=== PATIENT | female | born 1940 | race Caucasian/White ===

== ENCOUNTER 2022-09-04 17:36 | Inpatient (IN) | payer MEDICARE, OTHER, SELFPAY ==
[2022-09-04] VITALS (11 sets, daily range): BP systolic 130–152; BP diastolic 69–87; PULSE 96–120; RESP 18–20; TEMP 36.6; O2SAT 95–100; BMI 26.6
--- NOTE | ~2022-09-04 | CT_ITS ---
EXAMINATION: CT BRAIN W/O DATE: 09/04/2022 19:11 INDICATION: Altered mental status. TECHNIQUE: Computed tomography (CT) of the head was performed without intravenous contrast. The dose- length product was 681.00 mGy-cm. COMPARISON: No prior studies for comparison. FINDINGS: Normal brain parenchymal volume for age. Normal frye-white differentiation. No acute intrac ranial hemorrhage, infarction, mass or mass effect. There are scattered mild periventricular and subc ortical white matter changes, most likely related to small vessel ischemic disease (microangiopathy). Paranasal sinuses and mastoids are pneumatized. No depressed skull fractures. No ventriculomegaly or midline shift. Midline sagittal images demonstrate a normal corpus callosum, c raniovertebral junction and sella turcica. Basilar cisterns are patent. Paranasal sinuses and mastoids are pneumatized. No depressed skull fractures. IMPRESSION: 1. No acute intracranial abnormality. Reviewed, dictated and finalized at location A.
--- NOTE | ~2022-09-04 | XR_ITS ---
EXAMINATION: XR chest 1V portable 09/04/2022 18:35 INDICATION: Elevated glucose PROCEDURE: AP portable chest COMPARISON: 08/02/2019 FINDINGS: The lungs are clear. The cardiomediastinal silhouette is within normal limits. There are no pleural effusions. There is no pneumothorax suspected. IMPRESSION: 1: NO ACUTE CARDIOPULMONARY DISEASE. Reviewed, dictated and finalized at location A.
[2022-09-04 18:01] LABS: Glucose Point of Care > 450 mg/dl (65-105)
[2022-09-04] MEDS: SODIUM CHLORIDE 0.9% IV 1,000 ML 999 ML IV CONT ×2 (18:29→19:25)
[2022-09-04 18:30] LABS: Base Excess ABG 1.6 mmol/L (0-2); Carboxyhemoglobin 0.6 % (0-1.5); HCO3 ABG 24.4 mmol/L (23-29); Methemoglobin ABG 0.3 % (0-1.5); Oxygen Content ABG 20.7 %vol (16.0-22.0); Oxygen Saturation ABG 95.3 % (95-97); Oxyhemoglobin 94.4 % (94-100); PCO2 ABG 33.4 mmHg (35-45); PO2 ABG 70.2 mmHg (75-85); Reduced Hemoglobin 4.7 % (0-1.5); Total Hemoglobin 15.6 g/dL (12.0-18.0); pH ABG 7.48 (7.35-7.45)
[2022-09-04 18:34] LABS: Hematocrit 43.6 % (35.0-42.0); Hemoglobin 14.9 g/dL (11.7-13.8); Mean Corpuscular HGB Conc 34.2 g/dL (32.0-36.0); Mean Corpuscular Hemoglobin 29.9 pg (27.0-31.0); Mean Corpuscular Volume 87.6 fL (78.0-102.0); Mean Platelet Volume 10.6 fl (9.2-11.8); Platelet Count Result 333 K/mm3 (150-420); Red Blood Count 4.98 M/mm3 (4.20-5.40); Red Cell Distribution Width 11.9 % (11.6-14.4)
[2022-09-04 18:34] LABS: Device ROOM AIR; Modified Allen's Test Pass; Site Drawn RIGHT RADIAL
[2022-09-04 18:47] LABS: Band Neutrophils Percent 0 % (0-6); Eosinophils Absolute Manual 0.21 K/mm3 (0.02-0.5); Eosinophils Percent Manual 1 % (1-6); Lymphocytes Absolute Manual 2.75 K/mm3 (1.1-4.5); Lymphocytes Percent Manual 13 % (18-44); Monocytes Absolute Manual 1.27 K/mm3 (0.1-0.90); Monocytes Percent Manual 6 % (3-9); Neutrophils Absolute Manual 16.53 K/mm3 (1.7-7.2); Neutrophils Percent Manual 78 % (46-73)
[2022-09-04 18:48] LABS: Basophils Absolute Manual 0.42 K/mm3 (0-0.1); Basophils Percent Manual 2 % (0-1); Platelet Estimate Adequate (Adequate)
[2022-09-04 18:55] LABS: Lactic Acid Reflex 2.5 mmol/L (0.4-2.0)
[2022-09-04 18:58] LABS: Alanine Aminotransferase 15 U/L (14-59); Albumin Level 3.6 g/dL (3.4-5.0); Alkaline Phosphatase 137 U/L (46-116); Anion Gap 7 mmol/L (8-16); Aspartate Amino Transferase 12 U/L (15-37); Bilirubin,Total 0.5 mg/dL (0.00-1.00); Blood Urea Nitrogen 48 mg/dL (7-18); CRP 0.7 mg/dL (0.0-0.9); Calcium 11.3 mg/dL (8.5-10.1); Carbon Dioxide 29 mmol/L (21-32); Chloride 94 mmol/L (98-108); Estimated CRCL calculation 22 ml/min; Estimated Glomerular Filt Rate 34; Magnesium 2.1 mg/dL (1.8-2.4); Potassium 3.3 mmol/L (3.5-5.1); Sodium 130 mmol/L (136-145); Total Protein 7.2 g/dL (6.4-8.2)
[2022-09-04 19:00] LABS: Glucose 526 mg/dL (70-99); Osmolality Calculated 306 mOsm/kg (285-295)
[2022-09-04 19:01] LABS: White Blood Count 21.2 K/mm3 (4.8-10.8)
--- NOTE | 2022-09-04 19:28 | ECG_ITS ---
Measurements Intervals [place] Rate: 99 P: 65 HI: 158 QRS: -47 QRSD: 136 T: 127 QT: 386 QTc: 497 Interpretive Statements SINUS RHYTHM WITH OCCASIONAL SUPRAVENTRICULAR PREMATURE COMPLEXES LEFT AXIS DEVIATION [QRS AXIS < -30] LEFT BUNDLE BRANCH BLOCK [120+ ms QRS DURATION, 80+ ms Q/S IN V1/V2, 85+ ms R IN I/aVL/V5/V6] NO PREVIOUS ECG AVAILABLE FOR COMPARISON Electronically Signed On 09-05-2022 14:00:32 CDT by David Briones M.D.
[2022-09-04 19:31] LABS: Glucose Point of Care > 450 mg/dl (65-105)
[2022-09-04 20:01] LABS: Troponin I 25.8 ng/L (0.00-60.4)
[2022-09-04 20:10] LABS: Appearance Urine Clear (Clear); Bilirubin Urine Negative (Negative); Blood Urine Negative (Negative); Glucose Urine UA 3+ (Negative); Ketones Urine Negative (Negative); Leukocyte Esterase Ur Trace (Negative); Nitrate Urine Negative (Negative); Protein Urine Negative (Negative); Specific Grav Ur 1.015 (1.010-1.020); Urobilinogen Urine 0.2 mg/dL (0.2-1.0)
[2022-09-04 20:17] LABS: Add Urine Microscopic? YES; Bacteria Urine 1+ /hpf; Budding Yeast Urine Present /hpf; Color Urine Light Yellow (Yellow); RBC Urine 0-2 /hpf (0-2); Squamous Epithelial Cell Urine None seen /hpf (Few)
[2022-09-04 20:21] LABS: Glucose Point of Care > 450 mg/dl (65-105)
--- NOTE | 2022-09-04 20:21 | PC.NURSE ---
BS at 451, orders obtained from ERP. Pt is A&O x3 and visiting c family at bedside, pt was able to use BSC to urinate for UA but noted incontinent of urine in depend. VSS at this time.
[2022-09-04] MEDS: INSULIN HUMAN REGULAR (*BKC) 100 UNITS/ML 7 UNITS IV PUSH (20:28)
[2022-09-04] MEDS: KCL 20 MEQ/SW 100 ML 100 ML 50 MEQ IVPB (20:29)
[2022-09-04] MEDS: SODIUM CHLORIDE 0.9% IV 500 ML 999 ML IV CONT (20:30)
--- NOTE | 2022-09-04 20:37 | ED.WEAKNESS ---
HPI - Weakness General Chief complaint: Weakness Stated complaint: high blood pressure, low oxygen Time Seen by Provider: 09/04/22 17:42 Source: patient and family Mode of arrival: ambulatory History of Present Illness HPI Narrative: This is an 82-year-old female with history of diabetes that lives at home by herself and apparently family typically checks up on her but family was not aware that the patient has not been using right chair to keep her follow-up appointments with her primary care physician and [facility]. Patient has not been taking her medication or her insulin, and presents with elevated blood sugar reading of greater than 500. Is not complaining of any chest pain or shortness of breath no fever chills no nausea vomiting no abdominal pain no flank pain no dysuria. Patient has a history of hypertension and hypothyroidism. According to family they were not aware that she was not keeping her follow-up appointments. Otherwise the patient appears comfortable no acute distress O2 sats initially 96% on room air currently 99% on room air with a blood pressure 131/72 initially. MD Complaint: generalized weakness Onset (ago): week(s) Duration: improved Migration: none Related Data Home Medications Medication Instructions Recorded Confirmed amlodipine 10 mg tablet 10 mg PO DAILY 09/04/22 09/04/22 hydrochlorothiazide 25 mg tablet 25 mg PO DAILY 09/04/22 09/04/22 insulin lispro protamine-lispro 10 unit subcut DAILY 09/04/22 09/04/22 100 unit/mL (75-25) subcutaneous pen (Humalog Mix 75-25 KwikPen) insulin lispro protamine-lispro 55 unit subcut HS 09/04/22 09/04/22 100 unit/mL (75-25) subcutaneous pen (Humalog Mix 75-25 KwikPen) insulin lispro protamine-lispro 75 unit subcut QAM 09/04/22 09/04/22 100 unit/mL (75-25) subcutaneous pen (Humalog Mix 75-25 KwikPen) levothyroxine 50 mcg tablet 50 mcg PO DAILY 09/04/22 09/04/22 (Synthroid) lisinopril 40 mg tablet 40 mg PO DAILY 09/04/22 09/04/22 Allergies Allergy/AdvReac Type Severity Reaction Status Date / Time No Known Allergies Allergy Verified 09/04/22 18:17 Review of Systems Review of Systems: All systems reviewed & are unremarkable except as noted in HPI and below PMFSH Past Medical History Medical History Diabetes mellitus HTN (hypertension) Exam Const: General: healthy appearing, no acute distress and alert Limitations: no limitations HENMT: Head: normal to inspection Face/Nose/Sinus: Normal external nose present Face and sinus: normal facial exam Eyes: Conjunctivae: conjunctivae normal Pupils: Equal, round and reactive pupils present EOM: EOMs intact bilaterally Neck: Neck: normal visual inspection, no lymphadenopathy and no meningeal signs Chest: Chest palpation & inspection: normal inspection of the chest Resp: Effort & Inspection: normal respiratory effort Auscultation: clear to auscultation bilaterally Cardio: Rate: regular rate Rhythm: regular rhythm GI: GI Palp: Yes Soft to palpation Auscultation: normal bowel sounds Urinary Catheter: Urinary Catheter: patent and draining Back/Spine/Pelvis: Back: no CVA tenderness Skin: General skin exam: normal color Rashes: no rashes Wounds: no wounds Neuro: General: patient oriented x3 Cranial nerves: Yes Nystagmus not present Extrem: General: normal to inspection, no clubbing, cyanosis or edema and no pedal edema Psych: Mental Status: mental status grossly normal Affect: normal affect Course Course Emergency Course: reassessment of patient continues to appear comfortable no acute distress no complaints, no pain, the patient received 2L of IV fluids and her blood glucose levels have decreased to 451 down from over 500 patient received a dose of regular insulin and with insulin given and a potassium of 3.3 will start okay public relations writer labs reviewed with patient patient has a anion gap of 7 creatinine of 1.48 CBC
--- NOTE | 2022-09-04 21:16 | PC.NURSE ---
Hospitalist reviewed pt chart and ERP placed order for pt to be admitted. Discussed POC c pt and daughter, call placed to floor for Rm assignment, pt will go to Rm 205. VSS at this time, K+ rider infusing as per order.
--- NOTE | 2022-09-04 21:55 | ADMGEN ---
This patient, Mary Jo Ugalde, was admitted to 2nd Floor Room 205-1. Patient/family oriented to hospital policies and general routines including ID bracelet, bed and alarms, visiting hours, pain management, procedures, bathroom and other care routines, personal items, smoking policy, room service/diet, and visiting hours. Information on how to activate the Rapid Response Team has been discussed. Patient/Family are encouraged to report perceived risks to care and to ask questions if they do not understand what they are told or what they should do.
[2022-09-04 22:06] LABS: Glucose Point of Care 254 mg/dl (65-105)
[2022-09-04] MEDS: SODIUM CHLORIDE 0.9% IV 1,000 ML 100 ML IV CONT (23:20)
[2022-09-05] VITALS: BP 159/81; PULSE 103; RESP 16; TEMP 36.8; O2SAT 99
[2022-09-05 05:15] LABS: Hematocrit 38.4 % (35.0-42.0); Hemoglobin 12.8 g/dL (11.7-13.8); Mean Corpuscular HGB Conc 33.3 g/dL (32.0-36.0); Mean Corpuscular Hemoglobin 29.5 pg (27.0-31.0); Mean Corpuscular Volume 88.5 fL (78.0-102.0); Mean Platelet Volume 10.2 fl (9.2-11.8); Platelet Count Result 254 K/mm3 (150-420); Red Blood Count 4.34 M/mm3 (4.20-5.40); Red Cell Distribution Width 11.9 % (11.6-14.4); White Blood Count 13.1 K/mm3 (4.8-10.8)
[2022-09-05 05:36] LABS: Lactic Acid Reflex 0.9 mmol/L (0.4-2.0)
[2022-09-05 05:47] LABS: Alanine Aminotransferase 10 U/L (14-59); Albumin Level 2.6 g/dL (3.4-5.0); Alkaline Phosphatase 99 U/L (46-116); Anion Gap 10 mmol/L (8-16); Aspartate Amino Transferase 11 U/L (15-37); Bilirubin,Total 0.5 mg/dL (0.00-1.00); Blood Urea Nitrogen 28 mg/dL (7-18); Carbon Dioxide 24 mmol/L (21-32); Chloride 106 mmol/L (98-108); Estimated CRCL calculation 37 ml/min; Estimated Glomerular Filt Rate > 60; Glucose 306 mg/dL (70-99); Osmolality Calculated 307 mOsm/kg (285-295); Potassium 3.1 mmol/L (3.5-5.1); Sodium 140 mmol/L (136-145); Total Protein 5.5 g/dL (6.4-8.2)
[2022-09-05 05:48] LABS: Thyroid Stimulating Hormone Reflex 1.82 u/IU/mL (0.36-3.74)
[2022-09-05] MEDS: LEVOTHYROXINE SODIUM 50 MCG TABLET PO (06:07)
[2022-09-05 08:00] VITALS: BP 138/82; PULSE 92; RESP 18; TEMP 36.5; O2SAT 97
[2022-09-05 08:05] LABS: Glucose Point of Care 298 mg/dl (65-105)
[2022-09-05] MEDS: amLODIPine BESYLATE 5 MG TABLET 10 MG PO (09:33)
[2022-09-05] MEDS: lisinopriL 20 MG TABLET 40 MG PO (09:34)
[2022-09-05] MEDS: hydroCHLOROthiazide 25 MG TABLET PO (09:34)
[2022-09-05] MEDS: ENOXAPARIN 30 MG/0.3 ML SYRINGE SUB-Q (09:40)
--- NOTE | 2022-09-05 10:28 | PM.IMHP ---
H&P: HPI History of Present Illness Date/Time: 09/05/22 10:28 Chief Complaint: Weakness and confusion Narrative: This is a 82-year-old female who presented to our emergency department with complaints of weakness and confusion. Patient has a past medical history of diabetes and hypertension. According to the patient she has been having periods of confusion for approximately 1 month. Patient also notes that she has not been taking her blood sugars or insulin for approximately 1 month she also does not eat a diabetic diet. Patient notes that she is better with taking her diabetes medication and has not been taking it for approximately 1 month. When asked why she has not been taking it she does note she is tired of taking her medication. Patient is noncompliant with her diabetic management. Patient also notes that she has been having visual difficulties and was not sure if her insulin was or not. Vital signs 138/82, 92, 18, 97.7, 97% on room air, blood sugar on admission greater than 450, lactic acid 2.5, sodium 130, potassium 3.3, BUN 48, creatinine 1.48, CRP 0.7, UA positive for glucose leukocytes and bacteria with budding yeast ABG pH 7.48, CO2 33.4, O2 70.2, bicarb 24.4. CT of the head and chest unremarkable EKG sinus rhythm. Patient does stay at home along with his will need to swing. Plans for swing patient if she qualifies the patient denies SOB, CP, palpitation, extremity numbness, lightheadedness, dizziness, constipation, diarrhea, chills, or fever. Review of Systems Review of Systems: A 14 organ system Review of Systems was performed and pertinent positives included in the HPI, otherwise remaining ROS is negative. FOR[facility]LY [facility] Past Medical History Medical History Diabetes mellitus HTN (hypertension) Social History Social History Smoking status: Never smoker Second hand tobacco smoke exposure: No Alcohol intake: never Substance use: never Substance use type: does not use Spiritual care concerns: No Meds Home Medications and Allergies Home Medications Medication Instructions Recorded Confirmed Type amlodipine 10 mg tablet 10 mg PO DAILY 09/04/22 09/04/22 History hydrochlorothiazide 25 mg tablet 25 mg PO DAILY 09/04/22 09/04/22 History insulin lispro protamine-lispro 10 unit subcut DAILY 09/04/22 09/04/22 History 100 unit/mL (75-25) subcutaneous pen (Humalog Mix 75-25 KwikPen) insulin lispro protamine-lispro 55 unit subcut HS 09/04/22 09/04/22 History 100 unit/mL (75-25) subcutaneous pen (Humalog Mix 75-25 KwikPen) insulin lispro protamine-lispro 75 unit subcut QAM 09/04/22 09/04/22 History 100 unit/mL (75-25) subcutaneous pen (Humalog Mix 75-25 KwikPen) levothyroxine 50 mcg tablet 50 mcg PO DAILY 09/04/22 09/04/22 History (Synthroid) lisinopril 40 mg tablet 40 mg PO DAILY 09/04/22 09/04/22 History Allergies Allergy/AdvReac Type Severity Reaction Status Date / Time No Known Allergies Allergy Verified 09/04/22 18:17 Vital Signs Vital Signs - 24 hr 09/04/22 18:36 09/04/22 20:09 09/04/22 21:18 Temperature 97.8 F Pulse Rate 120 H 96 100 Respiratory Rate 20 18 18 Blood Pressure 131/72 152/87 H 142/85 H Pulse Oximetry 96 99 97 Oxygen Delivery Room Air Room Air Room Air 09/04/22 20:10 09/04/22 20:15 09/04/22 20:30 Temperature Pulse Rate Respiratory Rate Blood Pressure Pulse Oximetry 98 96 100 Oxygen Delivery 09/04/22 20:32 09/04/22 20:45 09/04/22 21:00 Temperature Pulse Rate Respiratory Rate Blood Pressure 130/69 Pulse Oximetry 100 95 Oxygen Delivery 09/04/22 21:01 09/04/22 21:15 09/05/22 00:00 Temperature 98.2 F Pulse Rate 103 H Respiratory Rate 16 Blood Pressure 142/85 H 159/81 H Pulse Oximetry 98 98 99 Oxygen Delivery Room Air 09/05/22 08:00 Temperature 97.7 F Pulse Rate 92 Re
[2022-09-05] MEDS: POTASSIUM CHLORIDE 20 MEQ TABLET 40 MEQ PO (11:03)
[2022-09-05 11:58] LABS: Glucose Point of Care 392 mg/dl (65-105)
[2022-09-05 15:02] VITALS: BP 119/62; PULSE 105; RESP 18; TEMP 36.1; O2SAT 99
--- NOTE | 2022-09-05 15:42 | PC.NURSE ---
pt incont. during nap, up to chair, complete bed change done, fresh gown applied, visitors in room, call light in reach
[2022-09-05 16:33] LABS: Glucose Point of Care 220 mg/dl (65-105)
[2022-09-05 20:00] VITALS: BP 117/72; PULSE 96; RESP 20; TEMP 36.3; O2SAT 97
[2022-09-05] MEDS: CEFDINIR 300 MG CAPSULE PO (21:29)
[2022-09-05 21:32] LABS: Glucose Point of Care 284 mg/dl (65-105)
[2022-09-05 23:56] VITALS: BP 143/73; PULSE 96; RESP 18; TEMP 36.1; O2SAT 97
[2022-09-06 03:48] VITALS: BP 123/73; PULSE 96; RESP 20; TEMP 36.1; O2SAT 96
[2022-09-06 05:30] LABS: Hematocrit 37.7 % (35.0-42.0); Hemoglobin 12.4 g/dL (11.7-13.8); Mean Corpuscular HGB Conc 32.9 g/dL (32.0-36.0); Mean Corpuscular Hemoglobin 29.9 pg (27.0-31.0); Mean Corpuscular Volume 90.8 fL (78.0-102.0); Mean Platelet Volume 10.3 fl (9.2-11.8); Platelet Count Result 235 K/mm3 (150-420); Red Blood Count 4.15 M/mm3 (4.20-5.40); Red Cell Distribution Width 12.1 % (11.6-14.4); White Blood Count 9.1 K/mm3 (4.8-10.8)
--- NOTE | 2022-09-06 05:34 | WPDPN ---
Progress Note: A&P Assessment and Plan (1) Hyperglycemia: Code(s): R73.9 - Hyperglycemia, unspecified Status: Acute Assessment and Plan: Noncompliant Blood sugar on admission>450>254>298 Continue Accu-Cheks with sliding scale patient will continue home dosing of insulin with half the amount of insulin. Patient admits to being noncompliant with her diet we will adjust her insulin as indicated. A1c pending Follow-up with contract preparer She remains elevated resume home insulin dosage we will closely monitor (2) Acute hypokalemia: Code(s): E87.6 - Hypokalemia Status: Acute Assessment and Plan: Potassium 3.3> 3.1 Supplement (3) UTI (urinary tract infection): Qualifiers: Hematuria presence: without hematuria Urinary tract infection type: acute cystitis Qualified Code(s): N30.00 - Acute cystitis without hematuria Code(s): N39.0 - Urinary tract infection, site not specified Status: Acute Assessment and Plan: UA positive for leukocytes UA culture pending Patient started on azithromycin and Rocephin changed to cefdinir p.o. (4) HTN (hypertension): Code(s): I10 - Essential (primary) hypertension Status: Acute Assessment and Plan: Stable Continue amlodipine with hydrochlorothiazide and lisinopril Vital signs as ordered Will adjust medications (5) Diabetes mellitus: Code(s): E11.9 - Type 2 diabetes mellitus without complications Status: Acute Assessment and Plan: On admission blood sugar greater than 500 currently in the 200s A1c pending Continue diabetic bed diet Refer to hyperglycemia (6) Acute kidney injury: Code(s): N17.9 - Acute kidney failure, unspecified Status: Acute Assessment and Plan: Improved Creatinine 1.48>0.86 Will avoid nephrotoxic agents Will renal dose medication Subjective Date/time seen: 09/06/22 05:34 Interval history: Patient has no complaints she slept well overnight able to tolerate a meal and physical therapy is going well. The patient denies SOB, CP, palpitation, extremity numbness, lightheadedness, dizziness, constipation, diarrhea, chills, or fever. Exam Narrative: GENERAL: This is a well-nourished, well-developed patient, in no apparent distress. HEAD: normocephalic, atraumatic. EYES: PERRL. Sclera clear/white. Vision is grossly intact. EARS: External ears normal, auditory canals clear and without drainage, TMs normal without perforation. Hearing grossly intact. NOSE: External nose normal with no obvious nasal discharge, nares without redness, no rhinorrhea. THROAT: Mucous membranes moist, posterior pharynx clear. NECK: Neck supple, non-tender without lymphadenopathy, masses or thyromegaly. CARDIOVASCULAR: Regular rate and rhythm without murmurs, gallops, or rubs. RESPIRATORY: Clear to auscultation. Breath sounds equal bilaterally. No wheezes, rales, or rhonchi. GASTROINTESTINAL: Abdomen soft, non-tender, nondistended. Bowel sounds are active. No hepato-splenomegaly, or palpable masses. No guarding. SKIN: warm, intact with no suspicious lesions or rash, good texture and turgor. NEURO: awake, alert, and oriented to person, place and time. There were no obvious focal neurologic abnormalities. EXTREMITIES: Normal range of motion. No edema. No calf tenderness. Objective Data Vital Signs Vital Signs: Vital Signs - 24 hr 09/05/22 08:00 09/05/22 15:02 09/05/22 20:00 Temperature 97.7 F 97.0 F L 97.4 F L Pulse Rate 92 105 H 96 Respiratory Rate 18 18 20 Blood Pressure 138/82 119/62 117/72 Pulse Oximetry 97 99 97 Oxygen Delivery Room Air Room Air Room Air 09/05/22 23:56 09/06/22 03:48 Temperature 97 F L 96.9 F L Pulse Rate 96 96 Respiratory Rate 18 20 Blood Pressure 143/73 H 123/73 Pulse Oximetry 97 96 Oxygen Delivery Room Air Room Air Intake/Output Intake/Output: Intake & Output 09/03/22 09/04/22 09/05/22 09/06/22 23:5
[2022-09-06 05:52] LABS: Alanine Aminotransferase 12 U/L (14-59); Albumin Level 2.6 g/dL (3.4-5.0); Alkaline Phosphatase 88 U/L (46-116); Anion Gap 7 mmol/L (8-16); Aspartate Amino Transferase < 10 U/L (15-37); Bilirubin,Total 0.6 mg/dL (0.00-1.00); Blood Urea Nitrogen 17 mg/dL (7-18); Calcium 9.4 mg/dL (8.5-10.1); Carbon Dioxide 28 mmol/L (21-32); Chloride 109 mmol/L (98-108); Estimated CRCL calculation 44 ml/min; Estimated Glomerular Filt Rate > 60; Glucose 119 mg/dL (70-99); Osmolality Calculated 300 mOsm/kg (285-295); Potassium 3.8 mmol/L (3.5-5.1); Sodium 144 mmol/L (136-145); Total Protein 5.4 g/dL (6.4-8.2)
[2022-09-06] MEDS: LEVOTHYROXINE SODIUM 50 MCG TABLET PO (05:57)
[2022-09-06 06:02] LABS: Hemoglobin A1C 13.3 % (<5.7)
[2022-09-06 08:00] VITALS: BP 119/76; PULSE 106; RESP 18; TEMP 36.5; O2SAT 98
[2022-09-06 08:11] LABS: Glucose Point of Care 207 mg/dl (65-105)
[2022-09-06] MEDS: ENOXAPARIN 30 MG/0.3 ML SYRINGE SUB-Q (09:49)
[2022-09-06] MEDS: POTASSIUM CHLORIDE 20 MEQ TABLET 40 MEQ PO (09:50)
[2022-09-06] MEDS: lisinopriL 20 MG TABLET 40 MG PO (09:50)
[2022-09-06] MEDS: hydroCHLOROthiazide 25 MG TABLET PO (09:50)
[2022-09-06] MEDS: CEFDINIR 300 MG CAPSULE PO ×2 (09:50→21:24)
[2022-09-06] MEDS: amLODIPine BESYLATE 5 MG TABLET 10 MG PO (09:50)
[2022-09-06 11:43] LABS: Glucose Point of Care 336 mg/dl (65-105)
--- NOTE | 2022-09-06 14:00 | PC.NURSE ---
N.O. received to discontinue telemetry.
[2022-09-06 16:00] VITALS: BP 124/68; PULSE 97; RESP 17; TEMP 37.1; O2SAT 98
[2022-09-06 16:58] LABS: Glucose Point of Care 169 mg/dl (65-105)
--- NOTE | 2022-09-06 18:19 | PC.NURSE ---
Charting by Alexandra Best, student nurse has been reviewed and agreed with by this nurse.
[2022-09-06 21:32] LABS: Glucose Point of Care 244 mg/dl (65-105)
[2022-09-06 23:59] VITALS: BP 118/77; PULSE 94; RESP 18; TEMP 36.6; O2SAT 100
[2022-09-07 05:28] LABS: Hematocrit 39.6 % (35.0-42.0); Hemoglobin 13.2 g/dL (11.7-13.8); Mean Corpuscular HGB Conc 33.3 g/dL (32.0-36.0); Mean Corpuscular Hemoglobin 30.2 pg (27.0-31.0); Mean Corpuscular Volume 90.6 fL (78.0-102.0); Mean Platelet Volume 10.3 fl (9.2-11.8); Platelet Count Result 250 K/mm3 (150-420); Red Blood Count 4.37 M/mm3 (4.20-5.40); Red Cell Distribution Width 11.9 % (11.6-14.4); White Blood Count 9.1 K/mm3 (4.8-10.8)
[2022-09-07 05:44] LABS: Alanine Aminotransferase 12 U/L (14-59); Albumin Level 2.7 g/dL (3.4-5.0); Alkaline Phosphatase 90 U/L (46-116); Anion Gap 5 mmol/L (8-16); Aspartate Amino Transferase 11 U/L (15-37); Bilirubin,Total 0.5 mg/dL (0.00-1.00); Blood Urea Nitrogen 14 mg/dL (7-18); Calcium 9.9 mg/dL (8.5-10.1); Carbon Dioxide 28 mmol/L (21-32); Chloride 109 mmol/L (98-108); Estimated CRCL calculation 45 ml/min; Estimated Glomerular Filt Rate > 60; Glucose 86 mg/dL (70-99); Osmolality Calculated 293 mOsm/kg (285-295); Potassium 3.6 mmol/L (3.5-5.1); Sodium 142 mmol/L (136-145); Total Protein 5.9 g/dL (6.4-8.2)
[2022-09-07] MEDS: LEVOTHYROXINE SODIUM 50 MCG TABLET PO (05:45)
[2022-09-07 08:00] VITALS: BP 127/74; PULSE 106; RESP 17; TEMP 36.4; O2SAT 100
--- NOTE | 2022-09-07 08:48 | PM.DS ---
DS: Admitting Diagnosis Discharge Date 09/07/2022 Admitting Diagnosis Hyperglycemia and UTI DS: Discharge Diagnosis Discharge Diagnosis (1) Hyperglycemia: Code(s): R73.9 - Hyperglycemia, unspecified Status: Acute Assessment and Plan: Noncompliant Blood sugar on admission>450>254>298>119>86 Continue Accu-Cheks with sliding scale patient will continue home dosing of insulin with half the amount of insulin. Patient admits to being noncompliant with her diet we will adjust her insulin as indicated. A1c pending Follow-up with director of curriculum and instruction She remains elevated resume home insulin dosage we will closely monitor (2) Acute hypokalemia: Code(s): E87.6 - Hypokalemia Status: Acute Assessment and Plan: Potassium 3.3> 3.1>3.6 Supplement (3) UTI (urinary tract infection): Qualifiers: Hematuria presence: without hematuria Urinary tract infection type: acute cystitis Qualified Code(s): N30.00 - Acute cystitis without hematuria Code(s): N39.0 - Urinary tract infection, site not specified Status: Acute Assessment and Plan: UA positive for leukocytes UA culture no growth continue cefdinir p.o. (4) HTN (hypertension): Code(s): I10 - Essential (primary) hypertension Status: Acute Assessment and Plan: Stable Continue amlodipine with hydrochlorothiazide and lisinopril Vital signs as ordered Will adjust medications (5) Diabetes mellitus: Code(s): E11.9 - Type 2 diabetes mellitus without complications Status: Acute Assessment and Plan: On admission blood sugar greater than 500 currently in the 200s A1c 13.3 Continue diabetic bed diet Refer to hyperglycemia (6) Acute kidney injury: Code(s): N17.9 - Acute kidney failure, unspecified Status: Acute Assessment and Plan: Improved Creatinine 1.48>0.86 Will avoid nephrotoxic agents Will renal dose medication DS: Summary Hospital Course Reason for hospitalization: Hyperglycemia, UTI and confusion Hospital Course: This is a 82-year-old female who presented to our emergency department with complaints of weakness and confusion.? Patient has a past medical history of diabetes and hypertension.? According to the patient she has been having periods of confusion for approximately 1 month.? Patient also notes that she has not been taking her blood sugars or insulin for approximately 1 month she also does not eat a diabetic diet.? Patient notes that she is better with taking her diabetes medication and has not been taking it for approximately 1 month.? When asked why she has not been taking it she does note she is tired of taking her medication.? Patient is noncompliant with her diabetic management.? Patient also notes that she has been having visual difficulties and was not sure if her insulin was . Patie. Blood sugar is currently controlled. Family members will assist with medication administration to ensure compliance. Patient admitted in swing bed for rehabilitation due to decreased balance decreased mobility in severe limited function endurant and/or mobility. Time Spent with Patient Time attestation: Total time spent providing and/or coordinating discharge services: Exam Narrative: GENERAL: This is a well-nourished, well-developed patient, in no apparent distress. HEAD: normocephalic, atraumatic. EYES: PERRL. Sclera clear/white. Vision is grossly intact. EARS: External ears normal, auditory canals clear and without drainage, TMs normal without perforation. Hearing grossly intact. NOSE: External nose normal with no obvious nasal discharge, nares without redness, no rhinorrhea. THROAT: Mucous membranes moist, posterior pharynx clear. NECK: Neck supple, non-tender without lymphadenopathy, masses or thyromegaly. CARDIOVASCULAR: Regular rate and rhythm without murmurs, gallops, or rubs. RESPIRATORY: Clear to auscultation. Breath sounds equal bila
--- NOTE | 2022-09-07 09:21 | PC.NURSE ---
Pt transitioning to swing bed. Full am assessment to be documented in new chart.
[2022-09-07] MEDS: CEFDINIR 300 MG CAPSULE PO (09:34)
[2022-09-07] MEDS: ENOXAPARIN 30 MG/0.3 ML SYRINGE SUB-Q (09:34)
[2022-09-07] MEDS: POTASSIUM CHLORIDE 20 MEQ TABLET 40 MEQ PO (09:35)
[2022-09-07] MEDS: lisinopriL 20 MG TABLET 40 MG PO (09:35)
[2022-09-07] MEDS: amLODIPine BESYLATE 5 MG TABLET 10 MG PO (09:35)
[2022-09-07] MEDS: hydroCHLOROthiazide 25 MG TABLET PO (09:35)
== END 2022-09-07 08:42 | disposition swing bed (61) | DRG 638 ==
LOC: CHSED 21:04 → CHS2ND 21:18
PROVIDERS: Nurse Practitioner; Admitting Provider Internal Medicine; Emergency Provider Emergency Medicine; Visit Provider Internal Medicine
DX: N39.0 Urinary tract infection, site not specified (principal); E87.6 Hypokalemia; E11.65 Type 2 diabetes mellitus with hyperglycemia; I10 Essential (primary) hypertension; E03.9 Hypothyroidism, unspecified; Z79.4 Long term (current) use of insulin; N17.9 Acute kidney failure, unspecified; Z91.14 Patient's other noncompliance with medication regimen; Z91.119 Patient's noncompliance with dietary regimen due to unspecified reason
CPT/HCPCS: 36415; 36600; 70450; 71045; 80053; 81001; 82375; 82805; 82948; 83036; 83050; 83605; 83735; 84100; 84443; 84484; 85025; 85027; 86140; 87040; 87086; 87088; 93005; 96361; 96365; 96375; 97110; 97162; 97165; 97530; 99285; A9270; J0456; J0696; J1650; J1815; J3480; J7030; J7040

== ENCOUNTER 2022-09-07 09:51 | Inpatient (IN) | payer MEDICARE, OTHER, SELFPAY ==
[2022-09-07 10:16] VITALS: BMI 26.6
[2022-09-07 10:20] VITALS: PULSE 106; RESP 17; O2SAT 100
--- NOTE | 2022-09-07 10:20 | ADMGEN ---
This patient, Mary Jo Ugalde, transferred to Swing Bed admission and remains in Room 205-1. Patient/family oriented to hospital policies and general routines including ID bracelet, bed and alarms, visiting hours, pain management, procedures, bathroom and other care routines, personal items, smoking policy, room service/diet, and visiting hours. Information on how to activate the Rapid Response Team has been discussed. Patient/Family are encouraged to report perceived risks to care and to ask questions if they do not understand what they are told or what they should do.
--- NOTE | 2022-09-07 10:25 | PM.IMHP ---
H&P: HPI History of Present Illness Date/Time: 09/07/22 10:25 Chief Complaint: weakness, rehab Narrative: This is a 82-year-old female who presented to our emergency department with complaints of weakness and confusion.? Patient has a past medical history of diabetes and hypertension.? According to the patient she has been having periods of confusion for approximately 1 month.? Patient also notes that she has not been taking her blood sugars or insulin for approximately 1 month she also does not eat a diabetic diet.? Patient notes that she is better with taking her diabetes medication and has not been taking it for approximately 1 month.? When asked why she has not been taking it she does note she is tired of taking her medication.? Patient is noncompliant with her diabetic management.? Patient also notes that she has been having visual difficulties and was not sure if her insulin was .? Patie. ? Blood sugar is currently controlled.? Family members will assist with medication administration to ensure compliance.? Patient admitted in swing bed for rehabilitation due to decreased balance decreased mobility in severe limited function endurant and/or mobility. Review of Systems Review of Systems: All systems reviewed & are unremarkable except as noted in HPI and below PMFSH Past Medical History Medical History Diabetes mellitus HTN (hypertension) Social History Social History Smoking status: Never smoker Second hand tobacco smoke exposure: No Alcohol intake: never Substance use: never Substance use type: does not use Spiritual care concerns: No Meds Home Medications and Allergies Home Medications Medication Instructions Recorded Confirmed Type amlodipine 10 mg tablet 10 mg PO DAILY 09/04/22 09/07/22 History hydrochlorothiazide 25 mg tablet 25 mg PO DAILY 09/04/22 09/07/22 History insulin lispro protamine-lispro 10 unit subcut DAILY 09/04/22 09/07/22 History 100 unit/mL (75-25) subcutaneous pen (Humalog Mix 75-25 KwikPen) insulin lispro protamine-lispro 55 unit subcut HS 09/04/22 09/07/22 History 100 unit/mL (75-25) subcutaneous pen (Humalog Mix 75-25 KwikPen) insulin lispro protamine-lispro 75 unit subcut QAM 09/04/22 09/07/22 History 100 unit/mL (75-25) subcutaneous pen (Humalog Mix 75-25 KwikPen) levothyroxine 50 mcg tablet 50 mcg PO DAILY 09/04/22 09/07/22 History (Synthroid) lisinopril 40 mg tablet 40 mg PO DAILY 09/04/22 09/07/22 History cefdinir 300 mg capsule 300 mg PO Q12HR 7 days #14 caps 09/07/22 09/07/22 Rx Allergies Allergy/AdvReac Type Severity Reaction Status Date / Time No Known Allergies Allergy Verified 09/04/22 18:17 Exam Narrative: GENERAL: This is a well-nourished, well-developed pat ient, in no appare nt distress. HEAD: normocephalic, at raumatic. EYES: PE RRL. Sclera clear/ white. Vision is g rossly intact. EAR S: External ears n ormal, auditory ca nals clear and wit hout drainage, TMs normal without pe rforation. Hearing grossly intact. N OSE: External nose normal with no ob vious nasal discha rge, nares without redness, no rhino rrhea. THROAT: Muc ous membranes mois t, posterior phary nx clear. NECK: Ne ck supple, non-ten angelica without lympha denopathy, masses or thyromegaly. CA RDIOVASCULAR: Regu lar rate and rhyth m without murmurs, gallops, or rubs. RESPIRATORY: Pepper r to auscultation. Breath sounds equ al bilaterally. No wheezes, rales, o r rhonchi.? GASTRO INTESTINAL: Abdome n soft, non-tender , nondistended. Richi wel sounds are act lenny. No hepato-spl enomegaly, or palp able masses. No gu arding. SKIN: warm , intact with no s uspicious lesions or rash, good text ure and turgor. NE URO: awake, alert, and oriented to p erson, place and t belkis. There were no obvious focal matt
[2022-09-07 10:31] VITALS: BP 127/74; PULSE 106; RESP 17; TEMP 36.4; O2SAT 100
[2022-09-07 11:46] LABS: Glucose Point of Care 152 mg/dl (65-105)
[2022-09-07] MEDS: polyethylene glycoL 3350 17 GM POWD.PACK PO (12:39)
[2022-09-07 16:00] VITALS: BP 129/99; PULSE 108; RESP 16; TEMP 36.3; O2SAT 99
[2022-09-07 16:47] LABS: Glucose Point of Care 69 mg/dl (65-105)
--- NOTE | 2022-09-07 17:35 | PC.NURSE ---
Charting by Alexandra Best, student nurse has been reviewed and agreed with by this nurse.
[2022-09-07 21:01] LABS: Glucose Point of Care 137 mg/dl (65-105)
[2022-09-07] MEDS: traZODone HCL 50 MG TABLET PO (21:10)
[2022-09-07] MEDS: CEFDINIR 300 MG CAPSULE PO (21:10)
--- NOTE | 2022-09-07 21:30 | PC.NURSE ---
Patient refused 75/25 insulin due to blood sugar being 137 and she was afraid her blood sugar would drop too low during the night if she took it. Patient also refused her colace, saying she took one this morning and her stomach is rumbling. Patient says she will take her morning one if she hasn't had a bm by then. Denies pain/complaints/need @ this time. Call light in reach.
[2022-09-08] VITALS: BP 116/72; PULSE 96; RESP 18; TEMP 36.6; O2SAT 97
[2022-09-08] MEDS: LEVOTHYROXINE SODIUM 50 MCG TABLET PO (05:52)
[2022-09-08 07:30] LABS: Glucose Point of Care 219 mg/dl (65-105)
[2022-09-08 07:32] VITALS: BP 132/83; PULSE 100; RESP 16; TEMP 36.4; O2SAT 95
[2022-09-08] MEDS: amLODIPine BESYLATE 5 MG TABLET 10 MG PO (08:19)
[2022-09-08] MEDS: lisinopriL 20 MG TABLET 40 MG PO (08:20)
[2022-09-08] MEDS: DOCUSATE SODIUM 100 MG CAPSULE PO ×2 (08:21→20:55)
[2022-09-08] MEDS: CEFDINIR 300 MG CAPSULE PO ×2 (08:21→20:55)
[2022-09-08] MEDS: hydroCHLOROthiazide 25 MG TABLET PO (08:21)
[2022-09-08 11:39] LABS: Glucose Point of Care 208 mg/dl (65-105)
[2022-09-08 16:00] VITALS: BP 139/90; PULSE 121; RESP 16; TEMP 36.2; O2SAT 98
[2022-09-08 16:40] LABS: Glucose Point of Care 185 mg/dl (65-105)
[2022-09-08 20:55] VITALS: PULSE 103
[2022-09-08] MEDS: METOPROLOL TARTRATE 6.25 MG TABLET PO (20:55)
[2022-09-08] MEDS: traZODone HCL 50 MG TABLET PO (20:56)
[2022-09-09] VITALS: BP 128/84; PULSE 103; RESP 16; TEMP 36.7; O2SAT 98
[2022-09-09 00:38] LABS: Glucose Point of Care 258 mg/dl (65-105)
[2022-09-09 01:36] LABS: Glucose Point of Care 54 mg/dl (65-105)
[2022-09-09 02:15] LABS: Glucose Point of Care 87 mg/dl (65-105)
[2022-09-09 03:31] LABS: Glucose Point of Care 135 mg/dl (65-105)
--- NOTE | 2022-09-09 03:40 | PC.NURSE ---
Patient's blood sugar was 258 @ 2053 on the . As a result, patient was given the 55 units of 75/25 humalin ordered. Patient woke up at about 0125, stating that she was not feeling well. She was feeling weak, and was sweating. Patient's blood sugar was taken, and it was 54 @ 0131. Patient was given orange juice, and caridad crackers. Her blood sugar was rechecked at 0209, and was 87. Patient stated that she was feeling much better. She was no longer sweating, and felt much steadier. Patient went back to sleep. Her blood sugar was rechecked at 0325, and was 135. Patient went right back to sleep.
[2022-09-09] MEDS: LEVOTHYROXINE SODIUM 50 MCG TABLET PO (06:25)
[2022-09-09 07:26] LABS: Glucose Point of Care 217 mg/dl (65-105)
[2022-09-09 07:45] VITALS: BP 130/72; PULSE 93; RESP 16; TEMP 36.3; O2SAT 97
[2022-09-09 08:11] VITALS: PULSE 93
[2022-09-09] MEDS: lisinopriL 20 MG TABLET 40 MG PO (08:11)
[2022-09-09] MEDS: METOPROLOL TARTRATE 6.25 MG TABLET PO ×2 (08:11→20:31)
[2022-09-09] MEDS: CEFDINIR 300 MG CAPSULE PO ×2 (08:11→20:32)
[2022-09-09] MEDS: hydroCHLOROthiazide 25 MG TABLET PO (08:12)
[2022-09-09] MEDS: DOCUSATE SODIUM 100 MG CAPSULE PO (08:12)
[2022-09-09 11:49] LABS: Glucose Point of Care 172 mg/dl (65-105)
[2022-09-09 16:00] VITALS: BP 134/75; PULSE 102; RESP 16; TEMP 36.3; O2SAT 96
[2022-09-09 16:47] LABS: Glucose Point of Care 210 mg/dl (65-105)
--- NOTE | 2022-09-09 18:35 | PC.NURSE ---
Patient continues to need education regarding blood glucose monitoring and maintenance. Fish Pitcher provided education on the importance of checking her sugars regularly and the health effects of T2 DM. Patient voiced understanding, but will require further education on insulin administration and action.
[2022-09-09 20:31] VITALS: PULSE 93
[2022-09-09] MEDS: traZODone HCL 50 MG TABLET PO (20:32)
[2022-09-09 20:36] LABS: Glucose Point of Care 243 mg/dl (65-105)
[2022-09-10] VITALS: BP 159/86; PULSE 93; RESP 20; TEMP 36.2; O2SAT 96
[2022-09-10] MEDS: LEVOTHYROXINE SODIUM 50 MCG TABLET PO (06:06)
[2022-09-10 07:42] LABS: Glucose Point of Care 224 mg/dl (65-105)
[2022-09-10 08:00] VITALS: BP 117/73; PULSE 96; RESP 18; TEMP 36.6; O2SAT 99
[2022-09-10 08:12] VITALS: PULSE 92
[2022-09-10] MEDS: METOPROLOL TARTRATE 6.25 MG TABLET PO ×2 (08:12→20:28)
[2022-09-10] MEDS: lisinopriL 20 MG TABLET 40 MG PO (08:12)
[2022-09-10] MEDS: CEFDINIR 300 MG CAPSULE PO ×2 (08:13→20:28)
[2022-09-10] MEDS: hydroCHLOROthiazide 25 MG TABLET PO (08:13)
[2022-09-10 11:41] LABS: Glucose Point of Care 237 mg/dl (65-105)
[2022-09-10 16:00] VITALS: BP 125/72; PULSE 96; RESP 16; TEMP 36.6; O2SAT 100
[2022-09-10 16:41] LABS: Glucose Point of Care 98 mg/dl (65-105)
[2022-09-10 20:28] VITALS: PULSE 102
[2022-09-10] MEDS: traZODone HCL 50 MG TABLET PO (20:28)
[2022-09-10 20:30] LABS: Glucose Point of Care 248 mg/dl (65-105)
[2022-09-10 23:57] VITALS: BP 132/75; PULSE 102; RESP 18; TEMP 36.3; O2SAT 98
[2022-09-11] MEDS: LEVOTHYROXINE SODIUM 50 MCG TABLET PO (06:09)
--- NOTE | 2022-09-11 06:34 | PC.NURSE ---
This nurse reviewed and agree with charting as noted by Janneth Garcia LPN
[2022-09-11 08:00] VITALS: BP 136/92; PULSE 86; RESP 17; TEMP 36; O2SAT 99
[2022-09-11 08:00] LABS: Glucose Point of Care 181 mg/dl (65-105)
[2022-09-11 09:09] VITALS: PULSE 86
[2022-09-11] MEDS: hydroCHLOROthiazide 25 MG TABLET PO (09:09)
[2022-09-11] MEDS: METOPROLOL TARTRATE 6.25 MG TABLET PO ×2 (09:09→20:37)
[2022-09-11] MEDS: lisinopriL 20 MG TABLET 40 MG PO (09:09)
[2022-09-11] MEDS: CEFDINIR 300 MG CAPSULE PO ×2 (09:09→20:37)
[2022-09-11 11:43] LABS: Glucose Point of Care 209 mg/dl (65-105)
[2022-09-11 15:09] LABS: Glucose Point of Care 68 mg/dl (65-105)
[2022-09-11 16:00] VITALS: BP 166/74; PULSE 104; RESP 17; TEMP 35.8; O2SAT 98
[2022-09-11 20:00] VITALS: PULSE 104; RESP 17; O2SAT 98
[2022-09-11 20:37] VITALS: PULSE 107
[2022-09-11] MEDS: traZODone HCL 50 MG TABLET PO (20:37)
[2022-09-11 20:41] LABS: Glucose Point of Care 222 mg/dl (65-105)
[2022-09-12] VITALS: BP 121/77; PULSE 107; RESP 16; TEMP 36.4; O2SAT 99
[2022-09-12] MEDS: LEVOTHYROXINE SODIUM 50 MCG TABLET PO (06:03)
[2022-09-12 07:38] LABS: Glucose Point of Care 201 mg/dl (65-105)
[2022-09-12 08:00] VITALS: BP 144/82; PULSE 106; RESP 17; TEMP 36.1; O2SAT 99
[2022-09-12] MEDS: CEFDINIR 300 MG CAPSULE PO ×2 (08:29→21:06)
[2022-09-12 08:30] VITALS: PULSE 106
[2022-09-12] MEDS: lisinopriL 20 MG TABLET 40 MG PO (08:30)
[2022-09-12] MEDS: METOPROLOL TARTRATE 6.25 MG TABLET PO ×2 (08:30→21:07)
[2022-09-12] MEDS: hydroCHLOROthiazide 25 MG TABLET PO (08:30)
[2022-09-12 12:01] LABS: Glucose Point of Care 134 mg/dl (65-105)
[2022-09-12 16:00] VITALS: BP 148/80; PULSE 100; RESP 17; TEMP 36.1; O2SAT 96
[2022-09-12 16:54] LABS: Glucose Point of Care 91 mg/dl (65-105)
[2022-09-12 20:15] LABS: Glucose Point of Care 168 mg/dl (65-105)
[2022-09-12 21:07] VITALS: PULSE 95
[2022-09-12] MEDS: traZODone HCL 50 MG TABLET PO (21:07)
[2022-09-12 23:43] VITALS: BP 137/71; PULSE 81; RESP 15; TEMP 36.4; O2SAT 99
[2022-09-13] MEDS: LEVOTHYROXINE SODIUM 50 MCG TABLET PO (05:55)
[2022-09-13 07:27] LABS: Glucose Point of Care 172 mg/dl (65-105)
[2022-09-13 07:52] VITALS: BP 135/77; PULSE 86; RESP 16; TEMP 36.6; O2SAT 100
[2022-09-13 08:19] VITALS: PULSE 86
[2022-09-13] MEDS: METOPROLOL TARTRATE 6.25 MG TABLET PO ×2 (08:19→20:51)
[2022-09-13] MEDS: CEFDINIR 300 MG CAPSULE PO ×2 (08:19→21:02)
[2022-09-13] MEDS: hydroCHLOROthiazide 25 MG TABLET PO (08:20)
[2022-09-13] MEDS: lisinopriL 20 MG TABLET 40 MG PO (08:20)
--- NOTE | 2022-09-13 09:57 | P.PNCROSS_ITS ---
Event Note Event Note Event Note: Spent 15 minutes discussing plan of care when patient goes home and her assista nce that she will have at home. We discussed her follow up and addressed depression and activity she can get involved into.
[2022-09-13 11:42] LABS: Glucose Point of Care 148 mg/dl (65-105)
[2022-09-13 16:00] VITALS: BP 139/75; PULSE 87; RESP 16; TEMP 36.4; O2SAT 99
[2022-09-13 16:49] LABS: Glucose Point of Care 101 mg/dl (65-105)
[2022-09-13 20:00] VITALS: PULSE 84; RESP 16; O2SAT 99
[2022-09-13 20:51] VITALS: PULSE 84
[2022-09-13] MEDS: traZODone HCL 50 MG TABLET PO (20:51)
[2022-09-13 20:54] LABS: Glucose Point of Care 158 mg/dl (65-105)
[2022-09-14] VITALS: BP 139/77; PULSE 84; RESP 16; TEMP 36.6; O2SAT 99
[2022-09-14] MEDS: LEVOTHYROXINE SODIUM 50 MCG TABLET PO (05:39)
[2022-09-14 07:41] LABS: Glucose Point of Care 120 mg/dl (65-105)
[2022-09-14 08:00] VITALS: BP 140/75; PULSE 85; RESP 16; TEMP 36.4; O2SAT 97
[2022-09-14 08:48] VITALS: PULSE 85
[2022-09-14] MEDS: hydroCHLOROthiazide 25 MG TABLET PO (08:48)
[2022-09-14] MEDS: METOPROLOL TARTRATE 6.25 MG TABLET PO (08:48)
[2022-09-14] MEDS: lisinopriL 20 MG TABLET 40 MG PO (08:48)
[2022-09-14] MEDS: CEFDINIR 300 MG CAPSULE PO (08:48)
--- NOTE | 2022-09-14 11:13 | PM.DS ---
DS: Admitting Diagnosis Discharge Date 09/14/2022 Admitting Diagnosis Hypoglycemia , Hypokalemia, Weakess DS: Discharge Diagnosis Discharge Diagnosis (1) Hyperglycemia: Code(s): R73.9 - Hyperglycemia, unspecified Status: Acute Assessment and Plan: Noncompliant Blood sugar on admission>450>254>298>119>86 Continue Accu-Cheks with sliding scale patient will continue home dosing of insulin with half the amount of insulin.? Patient admits to being noncompliant with her diet we will adjust her insulin as indicated. 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 (3) HTN (hypertension): Code(s): I10 - Essential (primary) hypertension Status: Acute Assessment and Plan: Stable Continue amlodipine with hydrochlorothiazide and lisinopril Vital signs as ordered Will adjust medications (4) Diabetes mellitus: Code(s): E11.9 - Type 2 diabetes mellitus without complications Status: Acute Assessment and Plan: On admission blood sugar greater than 500 currently in the 200s A1c 13.3 Continue diabetic bed diet Refer? to hyperglycemia (5) Weakness: Code(s): R53.1 - Weakness Status: Acute Assessment and Plan: ? Exhibit tolerance during physical activity as evidenced by a normal fluctuation of vital signs during physical activity. ? Patient will be ability to perform required activities of daily living. ? Provide appropriate nutrition for healing and strength. ? Use appropriate to prevent falls. ? Continue physical therapy/occupational therapy. DS: Summary Hospital Course Reason for hospitalization: Weakness and REhab Hospital Course: 82-year-old female that was admitted as a swing patient for rehab after initially being admitted for UTI confusion and weakness. Patient has continued to work with physical therapy and improved she is stable at this time to be discharged home with home health. Patient continues to improve and is able to go home and completed activity of daily living at this time. Patient blood sugars have remained stable she has had no nausea vomiting and/or diarrhea labs have been stable on discharge blood pressure is 135/80, pulse is 85, respirations 14, temp 97 6 and she is 100% on room air. Family is willing to assist at home this time patient will be discharged medications have been reviewed all questions have been answered and anticipatory needs have been addressed. Time Spent with Patient Time attestation: Total time spent providing and/or coordinating discharge services: Exam Narrative: GENERAL: This is a well-nourished, well-developed pat ient, in no appare nt distress. HEAD: normocephalic, at raumatic. EYES: PE RRL. Sclera clear/ white. Vision is g rossly intact. EAR S: Hearing grossl y intact. NOSE: Ex ternal nose normal with no obvious n denice discharge, na res without rednes s, no rhinorrhea. THROAT: Mucous mem branes moist CARDI OVASCULAR: Regular rate and rhythm R ESPIRATORY: Clear to auscultation. B reath sounds equal bilaterally. GAS TROINTESTINAL: Abd omen soft, non-ten angelica, nondistended. Bowel sounds are active.. SKIN: war m, intact with no suspicious lesions or rash, good dora ture and turgor. N EURO: awake, alert , and oriented to person, place and time.moments of co nfusion? EXTREMITI ES: Normal range o f motion.? No dmitry a. No calf tendern ess. DS: Data Data Completed and Pending Labs on day of discharge: Labs from last 24 hours 09/14/22 09/13/22 09/13/22
[2022-09-14 11:20] LABS: Glucose Point of Care 194 mg/dl (65-105)
[2022-09-14 16:00] VITALS: BP 135/80; PULSE 85; RESP 14; TEMP 36.4; O2SAT 100
[2022-09-14 17:10] LABS: Glucose Point of Care 108 mg/dl (65-105)
--- NOTE | 2022-09-14 17:59 | PC.NURSE ---
Reviewed discharge instructions-particularly the insulin pen instructions. Also went through medications from home to help determine which medications were no longer required. Discussed dietary options for patient with daughter and son. Patient voices understanding. Reminded patient of appointment with Dr. Law and the referal to [place]. Down to private vehicle by wheelchair.
--- NOTE | 2022-09-16 11:15 | PC.NURSE ---
Pt states she received and understood her discharge instructions. Pt also states that was the most wonderful place I was in, I can't say enough good things about [facility] .
== END 2022-09-14 18:00 | disposition home or self-care (01) | DRG 948 ==
PROVIDERS: Admitting Provider Internal Medicine; PCP Internal Medicine; Visit Provider Internal Medicine
DX: R53.1 Weakness (principal); N39.0 Urinary tract infection, site not specified; E11.65 Type 2 diabetes mellitus with hyperglycemia; I10 Essential (primary) hypertension; T38.3X6A Underdosing of insulin and oral hypoglycemic [antidiabetic] drugs, initial encounter; Z91.119 Patient's noncompliance with dietary regimen due to unspecified reason; Z91.199 Patient's noncompliance with other medical treatment and regimen due to unspecified reason; Z79.4 Long term (current) use of insulin; Z23 Encounter for immunization
CPT/HCPCS: 82948; 90471; 90694; 97110; 97112; 97116; 97162; 97165; 97530; 97535; A9270; G0008; J1815

== ENCOUNTER 2022-09-23 07:26 | Outpatient (CLI) | payer MEDICARE, SELFPAY ==
[2022-09-23 07:39] LABS: Basophils Absolute Auto 0.05 K/mm3 (0.00-0.10); Basophils Percent Auto 0.8 % (0.0-1.0); Eosinophils Absolute Auto 0.19 K/mm3 (0.02-0.50); Eosinophils Percent Auto 3.1 % (1.0-6.0); Hematocrit 38.5 % (35.0-42.0); Hemoglobin 12.6 g/dL (11.7-13.8); Immature Granulocyte Absolute 0.03 K/mm3 (0.00-0.00); Immature Granulocyte Percent A 0.5 % (0.0-0.0); Lymphocytes Percent Auto 34.3 % (18.0-42.0); Mean Corpuscular HGB Conc 32.7 g/dL (32.0-36.0); Mean Corpuscular Hemoglobin 30.4 pg (27.0-31.0); Mean Platelet Volume 8.8 fl (9.2-11.8); Monocytes Absolute Auto 0.56 K/mm3 (0.10-0.90); Monocytes Percent Auto 9.2 % (2.0-11.0); Neutrophils Absolute Auto 3.2 K/mm3 (1.7-7.2); Neutrophils Percent Auto 52.1 % (50.0-70.0); Platelet Count Result 269 K/mm3 (150-420); Red Blood Count 4.14 M/mm3 (4.20-5.40); Red Cell Distribution Width 12.6 % (11.6-14.4); White Blood Count 6.1 K/mm3 (4.8-10.8)
[2022-09-23 07:42] LABS: Appearance Urine Slightly Cloudy (Clear); Bilirubin Urine Negative (Negative); Blood Urine Negative (Negative); Glucose Urine UA Negative (Negative); Ketones Urine Negative (Negative); Leukocyte Esterase Ur 1+ (Negative); Nitrate Urine Negative (Negative); Protein Urine Negative (Negative); Specific Grav Ur 1.025 (1.010-1.020); Urobilinogen Urine 0.2 mg/dL (0.2-1.0)
[2022-09-23 07:48] LABS: Add Urine Microscopic? YES; Bacteria Urine Trace /hpf; Color Urine Light Yellow (Yellow); Hemoglobin A1C 11.7 % (<5.7); RBC Urine None seen /hpf (0-2); Squamous Epithelial Cell Urine Many /hpf (Few)
[2022-09-23 07:51] LABS: MALB Creatinine Ratio 29.2 mg/g (0-30); Microalbumin Urine Random 31.2 mg/L
[2022-09-23 08:37] LABS: Alanine Aminotransferase 20 U/L (14-59); Albumin Level 3.6 g/dL (3.4-5.0); Alkaline Phosphatase 92 U/L (46-116); Anion Gap 8 mmol/L (8-16); Aspartate Amino Transferase 15 U/L (15-37); Bilirubin,Total 0.7 mg/dL (0.00-1.00); Blood Urea Nitrogen 15 mg/dL (7-18); Calcium 10.2 mg/dL (8.5-10.1); Carbon Dioxide 28 mmol/L (21-32); Chloride 104 mmol/L (98-108); Cholesterol 172 mg/dL (0-200); Estimated Glomerular Filt Rate > 60; Glucose 152 mg/dL (70-99); HDL Direct 62 mg/dL (40-60); LDL Cholesterol Calculated 94 mg/dL (<130); Osmolality Calculated 293 mOsm/kg (285-295); Potassium 3.7 mmol/L (3.5-5.1); Sodium 140 mmol/L (136-145); Thyroid Stimulating Hormone 2.16 uIU/mL (0.36-3.74); Triglycerides 78 mg/dL (0-150)
== END 2022-09-23 07:27 | disposition home or self-care (01) ==
LOC: CHSLAB 07:30
PROVIDERS: PCP Internal Medicine; Visit Provider Internal Medicine
DX: E78.5 Hyperlipidemia, unspecified (principal); E11.9 Type 2 diabetes mellitus without complications; I10 Essential (primary) hypertension
CPT/HCPCS: 36415; 80053; 80061; 81001; 82043; 83036; 84443; 85025

== ENCOUNTER 2023-01-02 09:10 | Outpatient (CLI) | payer MEDICARE, OTHER, SELFPAY ==
[2023-01-02 09:50] LABS: Basophils Absolute Auto 0.05 K/mm3 (0.00-0.10); Basophils Percent Auto 0.9 % (0.0-1.0); Eosinophils Absolute Auto 0.11 K/mm3 (0.02-0.50); Eosinophils Percent Auto 1.9 % (1.0-6.0); Hematocrit 39.4 % (35.0-42.0); Hemoglobin 13.2 g/dL (11.7-13.8); Immature Granulocyte Absolute 0.02 K/mm3 (0.00-0.00); Immature Granulocyte Percent A 0.3 % (0.0-0.0); Lymphocytes Percent Auto 27.6 % (18.0-42.0); Mean Corpuscular HGB Conc 33.5 g/dL (32.0-36.0); Mean Corpuscular Hemoglobin 30.1 pg (27.0-31.0); Mean Platelet Volume 9.5 fl (9.2-11.8); Monocytes Absolute Auto 0.42 K/mm3 (0.10-0.90); Monocytes Percent Auto 7.2 % (2.0-11.0); Neutrophils Absolute Auto 3.6 K/mm3 (1.7-7.2); Neutrophils Percent Auto 62.1 % (50.0-70.0); Platelet Count Result 252 K/mm3 (150-420); Red Blood Count 4.38 M/mm3 (4.20-5.40); Red Cell Distribution Width 11.9 % (11.6-14.4); White Blood Count 5.8 K/mm3 (4.8-10.8)
[2023-01-02 09:51] LABS: Add Urine Microscopic? YES; Appearance Urine Clear (Clear); Bilirubin Urine Negative (Negative); Blood Urine Negative (Negative); Color Urine Light Yellow (Yellow); Glucose Urine UA 2+ (Negative); Ketones Urine Negative (Negative); Leukocyte Esterase Ur Negative (Negative); Nitrate Urine Negative (Negative); Protein Urine Negative (Negative); Specific Grav Ur 1.025 (1.010-1.020); Urobilinogen Urine 0.2 mg/dL (0.2-1.0)
[2023-01-02 09:57] LABS: Bacteria Urine Trace /hpf; Budding Yeast Urine Present /hpf; RBC Urine 0-2 /hpf (0-2); Squamous Epithelial Cell Urine Many /hpf (Few); WBC Urine 0-3 /hpf (0-3)
[2023-01-02 10:10] LABS: Hemoglobin A1C 8.9 % (<5.7)
[2023-01-02 10:16] LABS: Alanine Aminotransferase 23 U/L (14-59); Albumin Level 3.5 g/dL (3.4-5.0); Alkaline Phosphatase 145 U/L (46-116); Anion Gap 5 mmol/L (8-16); Aspartate Amino Transferase 11 U/L (15-37); Bilirubin,Total 0.4 mg/dL (0.00-1.00); Blood Urea Nitrogen 12 mg/dL (7-18); Calcium 10.3 mg/dL (8.5-10.1); Carbon Dioxide 31 mmol/L (21-32); Chloride 104 mmol/L (98-108); Estimated Glomerular Filt Rate > 60; Glucose 198 mg/dL (70-99); Osmolality Calculated 295 mOsm/kg (285-295); Potassium 3.8 mmol/L (3.5-5.1); Sodium 140 mmol/L (136-145); Total Protein 6.9 g/dL (6.4-8.2)
== END 2023-01-02 09:11 | disposition home or self-care (01) ==
LOC: CHSLAB 09:24
PROVIDERS: PCP Internal Medicine; Visit Provider Internal Medicine
DX: E11.9 Type 2 diabetes mellitus without complications (principal); I10 Essential (primary) hypertension; R82.90 Unspecified abnormal findings in urine
CPT/HCPCS: 36415; 80053; 81001; 83036; 85025; 87086; 87088

== ENCOUNTER 2023-04-08 07:01 | Outpatient (CLI) | payer MEDICARE, SELFPAY ==
[2023-04-08 07:34] LABS: Hemoglobin A1C 9.3 % (<5.7)
[2023-04-08 07:52] LABS: Alanine Aminotransferase 25 U/L (14-59); Albumin Level 3.7 g/dL (3.4-5.0); Alkaline Phosphatase 129 U/L (46-116); Anion Gap 9 mmol/L (8-16); Aspartate Amino Transferase 16 U/L (15-37); Bilirubin,Total 0.3 mg/dL (0.00-1.00); Blood Urea Nitrogen 15 mg/dL (7-18); Calcium 9.9 mg/dL (8.5-10.1); Carbon Dioxide 30 mmol/L (21-32); Chloride 103 mmol/L (98-108); Cholesterol 157 mg/dL (0-200); Estimated Glomerular Filt Rate 58; Glucose 160 mg/dL (70-99); HDL Direct 55 mg/dL (40-60); LDL Cholesterol Calculated 91 mg/dL (<130); Osmolality Calculated 297 mOsm/kg (285-295); Sodium 142 mmol/L (136-145); Total Protein 7.1 g/dL (6.4-8.2); Triglycerides 55 mg/dL (0-150)
== END 2023-04-08 07:02 | disposition home or self-care (01) ==
LOC: CHSLAB 07:03
PROVIDERS: PCP Internal Medicine; Visit Provider Internal Medicine
DX: I10 Essential (primary) hypertension (principal); E11.9 Type 2 diabetes mellitus without complications
CPT/HCPCS: 36415; 80053; 80061; 83036

== ENCOUNTER 2023-07-13 07:26 | Outpatient (CLI) | payer MEDICARE, SELFPAY ==
[2023-07-13 07:40] LABS: Basophils Absolute Auto 0.05 K/mm3 (0.00-0.10); Basophils Percent Auto 0.8 % (0.0-1.0); Eosinophils Absolute Auto 0.21 K/mm3 (0.02-0.50); Eosinophils Percent Auto 3.4 % (1.0-6.0); Hematocrit 39.2 % (35.0-42.0); Hemoglobin 13.1 g/dL (11.7-13.8); Immature Granulocyte Absolute 0.02 K/mm3 (0.00-0.00); Immature Granulocyte Percent A 0.3 % (0.0-0.0); Lymphocytes Absolute Auto 1.81 K/mm3 (1.10-4.50); Lymphocytes Percent Auto 29.4 % (18.0-42.0); Mean Corpuscular HGB Conc 33.4 g/dL (32.0-36.0); Mean Corpuscular Hemoglobin 30.6 pg (27.0-31.0); Mean Corpuscular Volume 91.6 fL (78.0-102.0); Mean Platelet Volume 9.4 fl (9.2-11.8); Monocytes Absolute Auto 0.62 K/mm3 (0.10-0.90); Monocytes Percent Auto 10.1 % (2.0-11.0); Neutrophils Absolute Auto 3.4 K/mm3 (1.7-7.2); Platelet Count Result 245 K/mm3 (150-420); Red Blood Count 4.28 M/mm3 (4.20-5.40); Red Cell Distribution Width 12.4 % (11.6-14.4); White Blood Count 6.2 K/mm3 (4.8-10.8)
[2023-07-13 07:52] LABS: Hemoglobin A1C 11.7 % (<5.7)
[2023-07-13 08:11] LABS: Alanine Aminotransferase 9 U/L (14-59); Albumin Level 3.4 g/dL (3.4-5.0); Alkaline Phosphatase 125 U/L (46-116); Anion Gap 8 mmol/L (8-16); Aspartate Amino Transferase 11 U/L (15-37); Bilirubin,Total 0.4 mg/dL (0.00-1.00); Blood Urea Nitrogen 15 mg/dL (7-18); Calcium 10.1 mg/dL (8.5-10.1); Carbon Dioxide 29 mmol/L (21-32); Chloride 104 mmol/L (98-108); Estimated Glomerular Filt Rate > 60; Glucose 198 mg/dL (70-99); Osmolality Calculated 298 mOsm/kg (285-295); Potassium 3.9 mmol/L (3.5-5.1); Sodium 141 mmol/L (136-145); Total Protein 6.7 g/dL (6.4-8.2)
[2023-07-13 08:16] LABS: MALB Creatinine Ratio 49.7 mg/g (0-30); Microalbumin Urine Random 144.3 mg/L
== END 2023-07-13 07:27 | disposition home or self-care (01) ==
LOC: CHSLAB 07:27
PROVIDERS: PCP Internal Medicine; Visit Provider Internal Medicine
DX: I10 Essential (primary) hypertension (principal); E11.9 Type 2 diabetes mellitus without complications
CPT/HCPCS: 36415; 80053; 82043; 83036; 85025

== ENCOUNTER 2024-11-10 10:16 | Outpatient (CLI) | payer MEDICARE, OTHER, SELFPAY ==
--- NOTE | ~2024-11-10 | XR_ITS ---
EXAMINATION: XR knee LT 3V DATE: 11/10/2024 10:47 INDICATION: Left knee pain. TECHNIQUE: 3 views of left knee were obtained. COMPARISON: None. FINDINGS: Alignment is normal. No fracture. There is mild tricompartmental osteoarthritis. No knee albin int effusion. IMPRESSION: 1. Mild left knee osteoarthritis. Reviewed, dictated and finalized at location A. ALT TILE FLOOR LAYER
--- NOTE | ~2024-11-10 | XR_ITS ---
EXAMINATION: XR lumbar spine 2-3V DATE: 11/10/2024 10:47 INDICATION: Chronic low back pain. TECHNIQUE: 3 views of lumbar spine were obtained. COMPARISON: None. FINDINGS: There is 3 degrees dextrocurvature of lumbar spine. Vertebral body heights are normal. Ther e is moderately decreased disc height at L4-L5 and severely decreased disc at L5-S1. There are endpla te osteophytes at all levels. There is multilevel severe facet joint osteoarthritis. IMPRESSION: 1. Severe lumbar spondylosis. Reviewed, dictated and finalized at location A. PMENT OPERATOR
== END 2024-11-10 10:17 | disposition home or self-care (01) ==
LOC: CHSIMG 10:19
PROVIDERS: PCP Internal Medicine; Visit Provider Internal Medicine
DX: M25.562 Pain in left knee (principal); M54.50 Low back pain, unspecified; M43.06 Spondylolysis, lumbar region; M17.12 Unilateral primary osteoarthritis, left knee
CPT/HCPCS: 72100; 73562

== ENCOUNTER 2024-11-14 13:35 | Outpatient (RCR) | payer MEDICARE, OTHER, SELFPAY ==
--- NOTE | 2024-11-14 14:40 | PTOPEVAL1 ---
Assessment and note entered by David Santana Evaluation Information Assessment Status Evaluation ICD-10 Condition Codes (PT) Pain in left knee M25.562 Onset 10/14/24 Subjective Information Pt. reports that she developed pain in the left side of her low back and shot into the left leg. She states that pain in the back and entire leg has since let up, but now notices isolated left knee pain. She describes the pain in the front side of the left knee. She states that she did have an episode of the left leg giving out 1 week ago, but was holding her daughter who stopped her from hitting the concrete. She states that she has not use a cane or walker. She reports that she continues to drive and do in community activities. She states that she has assistance with cleaning her home. She reports that she has noticed declining balance and states that she cannot walk a good distance without holding onto something. She states that she has difficulty with getting herself out of a lower seat. She reports that her goal for therapy is improved balance and safety. Reported Pain Level Pain Score 3: Self Report Assessment PT Clinical Summary Pt. is an 84 year old female who enters the clinic due to developed left l.e. pain. She presents with indication of lumbar radiculopathy in the left l.e. on this date. Pt. presents with generalized l.e. weakness, impaired gait, impaired balance and pain on this date. Continued skilled PT is indicated in order to improve these areas to allow the pt. to be able to improve safety with IADL's. Plan of Care Interventions Electrical Stimulation,Gait Training,Hot Pack/Cold Pack,Manual Therapy,Mechanical Traction,Neuro Re- education,Patient/Caregiver Education,Therapeutic Activities,Therapeutic Exercise PT Services Indicated No Treatment Frequency and 3x/week x 12 visits Duration These treatments will address the objective and functional deficits as defined above. The patient will be advanced safely and appropriately in order for the patient to progress towards his/her prior level of function. Additional exercises will be introduced and as well as a comprehensive home exercise program upon discharge, if needed, ?to ensure carryover of functional gains achieved in the clinic. This treatment plan has been reviewed and agreement upon by the patient.
--- NOTE | 2024-12-01 12:06 | PCPTNOTE ---
Cancelled session. Reports she is not feeling well today.
--- NOTE | 2024-12-20 17:46 | PCPTNOTE ---
Patient called & cancelled scheduled appointment this date due to weather.
--- NOTE | 2024-12-26 15:43 | PCPTNOTE ---
Patient called & cancelled scheduled appointment this date due to patient having another appointment scheduled.
--- NOTE | 2025-02-02 08:13 | PCPTNOTE ---
Cancelled sessions today and tomorrow. Pt states she thinks she has the flu and will schedule when she feels better.
--- NOTE | 2025-02-10 07:40 | OPREHPOC ---
Outpatient Therapy Plan of Care This is a Multidisciplinary Plan of Care that may contain components documented by all disciplines (PT, OT, and ST.) PT Problem 1 PT Problem #1 Knowledge Deficit PT Goal 1 Goal / Goal Update Pt. will be independent with a HEP addressing strength of the bilateral l.e. Target Visit 2 Progress Met PT Problem 2 PT Problem #2 Impaired Balance PT Goal 1 Goal / Goal Update Pt. will improve her Tinetti score to 24 or greater indicating improved safety. Pt. will complete the 5 Time Sit to Stand test in less than 15 seconds indicating decrease in fall risk. met Target Visit 12 Progress Partially Met PT Problem 3 PT Problem #3 Impaired Strength PT Goal 1 Goal / Goal Update Pt. will increase gross left l.e. strength to 4/5. Target Visit 12 Progress Met PT Problem 4 PT Problem #4 Impaired Gait PT Goal 1 Goal / Goal Update Pt. will ambulate with equal right and left stance time over level surface with normal aicha at over 2.5 ft/sec. Target Visit 12 Progress Partially Met
--- NOTE | 2025-02-10 07:40 | PTOPPROGNS ---
Assessment and note entered by JT File, PT Evaluation Information Assessment Status Progress ICD-10 Condition Codes (PT) Pain in left knee M25.562 Onset 10/14/24 Subjective Information patient reports she feels better since starting skilled PT. she reports her legs feel stronger. she has had no falls, and reports no pain today in the L LE. Assessment PT Clinical Summary mrs. sagastume presents to skilled PT for her 8th skilled PT visit. she presents today with improved bilateral LE strength, improved balance, and improved gait efficiency. however, she still lacks achievement of goals in gait efficiency and tinetti balance score. she would benefit from continued skilled PT to address her remaining deficits to improve her objective/functional performance and overall quality of life. Plan of Care Interventions Electrical Stimulation,Gait Training,Hot Pack/Cold Pack,Manual Therapy,Mechanical Traction,Neuro Re- education,Patient/Caregiver Education,Therapeutic Activities,Therapeutic Exercise PT Services Indicated Yes Treatment Frequency and continue per initial POC Duration These treatments will address the objective and functional deficits as defined above. The patient will be advanced safely and appropriately in order for the patient to progress towards his/her prior level of function. Additional exercises will be introduced and as well as a comprehensive home exercise program upon discharge, if needed, ?to ensure carryover of functional gains achieved in the clinic. This treatment plan has been reviewed and agreement upon by the patient.
== END 2025-02-12 23:59 | disposition home or self-care (01) ==
LOC: CHSPT 13:35
PROVIDERS: Visit Provider Internal Medicine
DX: M25.562 Pain in left knee (principal)
CPT/HCPCS: 97110; 97112; 97150; 97161; 97530

== ENCOUNTER 2025-02-14 13:05 | Outpatient (RCR) | payer MEDICARE, OTHER, SELFPAY ==
--- NOTE | 2025-02-21 14:54 | PTOPDC ---
Assessment and note entered by Pattie Rhoades DPT Evaluation Information Assessment Status Discharge Diagnosis L knee pain ICD-10 Condition Codes (PT) Pain in left knee M25.562 Onset 10/14/24 Subjective Information patient reports she has had great improvement since start of PT. she reports no falls or knee pain. she reports she is independent with HEP Reported Pain Level Pain Score 0: Self Report Pain Score 0: Self Report Assessment PT Clinical Summary Ms. Ugalde has attended 12 visits of skilled PT with great progress towards goals. She is independent with HEP, she has not had any knee pain and she has improved balance to low fall risk . She is appropriate for DC at this time. Plan of Care PT Services Indicated No
== END 2025-02-21 15:41 | disposition home or self-care (01) ==
LOC: CHSPT 13:05
PROVIDERS: Visit Provider Internal Medicine
DX: M25.562 Pain in left knee (principal)
CPT/HCPCS: 97110; 97112; 97530

== ENCOUNTER 2025-02-18 10:10 | Outpatient (CLI) | payer MEDICARE, OTHER, SELFPAY ==
--- OUTSIDE RECORDS SUMMARY | 2025-02-18 10:15 | XMS_ITS | Clinical Summary ---
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 Gender Identity Not on file Sexual Orientation Not on file Plan of Treatment Health Maintenance Due Date Last Done Comments DTaP, Tdap and Td Vaccines ( 1 - Tdap) 1959 Zoster Vaccines (1 of 2) 1990 Dexa Scan (General) 2005 Pneumococcal Vaccine: 65+ Ye ars (1 of 1 - PCV) 2005 RSV Immunization or 60+ Years (1 - 1-dose 75+ series) 2015 COVID-19 Vaccine (2023-2 5 season) 2024 Influenza Adult (#1) 2024 Meningococcal B Vaccine Aged Out No l onger eligible based on patient's age to complete this topic Meningococcal Vaccine Aged Out No aamir cyrus eligible based on patient's age to complete this topic RSV Immunizations Under 20 Months Aged Out No longer eligible based on patient's age to complete this topic
--- OUTSIDE RECORDS SUMMARY | 2025-02-18 10:15 | XMS_ITS ---
Author Organization [facility] Address [address] [place], [place] [id number] Care Team Providers Care Rotor Plate Washer Name Role Phone LIVIA JONES Unavailable [phone] Bubba Fabian Unavailable Unavailable JAYLEN PARISH Unavailable [phone] REASON FOR VISIT *General care Medications Medication SIG (Take, Route, Frequency, Duration) Notes Start Date End Date Status paroxetine hydrochloride 10 MG Oral Tablet ORAL paroxetine hydrochloride 10 MG Oral TabletOriginal Medicationparoxetine hydrochloride 10 MG Oral Tablet *Reorder from IM5 for eRx and Interaction Alerts* 017 Active levothyroxine sodium 0.05 MG Oral Capsule ORAL levothyroxine sodium 0.05 MG Oral CapsuleOriginal Medicationlevothyroxine sodium 0.05 MG Oral Capsule *Reorder from IM5 for eRx and Interaction Alerts* 017 Active alendronic acid 70 MG Oral Tablet ORAL alendronic acid 70 MG Oral TabletOriginal Medicationalendronic acid 70 MG Oral Tablet *Reorder from IM5 for eRx and Interaction Alerts* 017 Active cholecalciferol 0.025 MG Oral Capsule ORAL cholecalciferol 0.025 MG Ora l CapsuleOriginal Medicationcholecalciferol 0.025 MG Oral Capsule *Reorder from IM5 for eRx and Interaction Alerts* 017 Active amlodipine 10 MG Oral Tablet ORAL amlodipine 10 MG Oral TabletOriginal Medicationamlodipine 10 MG Oral Tablet *Reorder from IM5 for eRx and Interaction Alerts* 017 Active 3 ML insulin lispro 25 UNT/ML / insulin lispro protamine, human 75 UNT/ML Pen Injector [Humalog Mix] 3 ML insulin lispro 25 UNT/M L / insulin lispro protamine, human 75 UNT/ML Pen Injector [Humalog Mix]Original Medication3 ML insulin lispro 25 UNT/ML / insulin lispro protamine, human 75 UNT/ML Pen Injector [Hum 017 Active 24 HR metoprolol succinate 200 MG Extended Release Oral Tablet ORAL 24 HR metoprolol succinate 2 00 MG Extended Release Oral TabletOriginal [id number] HR metoprolol succinate 200 MG Extended Release Oral Tablet *Reorder from IM5 for eRx and Interaction Alerts* 017 Active Lisinopril 40 MG Oral Tablet ORAL lisinopril 40 MG Oral TabletOriginal Medicationlisinopril 40 MG Oral Tablet *[facility] for eRx and Interaction Alerts* 017 Active hydroCHLOROthiazide 25 MG Oral Tablet ORAL hydrochlorothiazide 25 MG Or al TabletOriginal Medicationhydrochlorothiazide 25 MG Oral Tablet *Reorder from [employer] for eRx and Interaction Alerts* 017 Active Encounters Encounter Location Date Provider Diagnosis [address] [id number] 12/10/2023 [facility] Plan Of Treatment No Information Progress Notes * NURYS CORTES FDOB: 0 (84 yo F)Acc No.[id number]:12/10/2023 Patient: NURYS VUONG Provider: Morris YORK :1940 A ge:83 Y S ex:Female Date:12/10/2023 Address:[address] [place] [address] Subjective: * Chief Complaints: * 1 . *General care. * Medical History: * Medications: T aking hydroCHLOROthiazide 25 MG Oral Tablet ORAL , Notes to Pharmacist: hydrochlorothiazide 25 MG Oral TabletOriginal Medicationhydrochlorothiazide 25 MG Oral Tablet *Reorder from [employer] for eRx and Interaction Alerts*, Taking Lisinopril 40 MG Oral Tablet ORAL , Notes to Pharmacist: lisinopril 40 MG Oral TabletOriginal Medicationlisinopril 40 MG Oral Tablet *Reorder from [facility] for eRx and Interaction Alerts*, Taking 24 HR metoprolol succinate 200 MG Extended Release Oral Tablet ORAL , Notes to Pharmacist: 24 HR metoprolol succinate 200 MG Extended Release Oral TabletOriginal [id number] HR metoprolol succinate 200 MG Extended Release Oral Tablet *Reorder from [facility] for eRx and Interaction Alerts*, Taking 3 ML insulin lispro 25 UNT/ML / insulin lispro protamine, human 75 UNT/ML Pen Injector [Humalog Mix] , Notes to Pharmacist: 3 ML insulin lispro 25 UNT/ML / insulin lispro protamine, human 75 UNT/ML Pen Injector [Humalog Mix]Original Medication3 ML insulin lispro 25 UNT/ML / insulin lispro protamine, human 75 UNT/ML Pen Injector [Hum, Taking alendronic acid 70 MG Oral Tablet ORAL , Notes to Pharmacist: alendronic acid 70 MG Oral TabletOriginal Medicationalendronic acid 70 MG Oral Tablet *Reorder from [facility] for eRx and Interaction Alerts*, Taking amlodipine 10 MG Oral Tablet ORAL , Notes to Pharmacist: amlodipine 10 MG Oral TabletOriginal Medicationamlodipine 10 MG Oral Tablet *Reorder from [facility] for eRx and Interaction Alerts*, Taking cholecalciferol 0.025 MG Oral Capsule ORAL , Notes to Pharmacist: cholecalciferol 0.025 MG Oral CapsuleOriginal Medicationcholecalciferol 0.025 MG Oral Capsule *Reorder from [facility] for eRx and Interaction Alerts*, Taking levothyroxine sodium 0.05 MG Oral Capsule ORAL , Notes to Pharmacist: levothyroxine sodium 0.05 MG Oral CapsuleOriginal Medicationlevothyroxine sodium 0.05 MG Oral Capsule *Reorder from [facility] for eRx and Interaction Alerts*, Taking paroxetine hydrochloride 10 MG Oral Tablet ORAL , Notes to Pharmacist: paroxetine hydrochloride 10 MG Oral TabletOriginal Medicationparoxetine hydrochloride 10 MG Oral Tablet *Reorder from [facility] for eRx and Interaction Alerts* Objective: * Vitals: Assessment: Plan: * Treatment: * Billing Information: * Visit Code: * Procedure Codes: * Electronic signature of VICKIE YORK DPM on 02/18/2025 at 10:15 AM CDT Sign off status: Pending * Provider: [facility] Date: 0 12/10/2023 Generated for Jayla mendiola/Kory/Gabrielle on: 0 02/18/2025 10:15 AM CDT
--- OUTSIDE RECORDS SUMMARY | 2025-02-18 10:15 | XMS_ITS | Referral Summary ---
Author Organization [facility] Medical Office Building B Address [address] [place] [address] Care Team Providers Care Ham Boner Name Role Phone Karlo Law MD Primary Care Provider [phone] Encounters Date Type Department Care Team Description 01/10/2025 11:00 AM AIR TRANSPORTATION PROVIDER Office Visit [facility] Medical Group Diabetes Endocrine Care at [address] [address] Jessi Mac, BREN Type 2 diabetes mellitus with hyperglycemia, with long-term current use of insulin (HCC) (Primary Dx); Hypertension associated with type 2 diabetes mellitus (HCC) from Last 3 Months Allergies No known active allergies Medications Synthroid 50 mcg tablet 07/10/2023 Active escitalopram (LEXAPRO) 5 mg tablet 1 tablet (5 mg total) 07/10/2023 Active losartan (COZAAR) 100 mg tablet 1 tablet (100 mg total) 07/05/2023 Active hydroCHLOROthia zide (HYDRODIURIL) 25 mg tablet 1 tablet (25 mg total) 09/09/2023 Active amLODIPine (NORVASC) 10 mg tablet 1 tablet (10 mg total) 07/05/2023 Active carvediloL (COREG) 12.5 mg tablet Take 1 tablet (12.5 mg total) by mouth 2 (two) times a day with meals Active pen needle, diabetic 32 gauge x 5/32 needle Use to inject insulin daily. E11.65. 100 each 3 12/17/2023 Active blood glucose diagnostic (glucose blood) strip Check blood sugar once a day 100 each 4 08/24/2024 Active insulin degludec-liragl utide (XULTOPHY) 100 unit-3.6 mg /mL (3 mL) insulin pen penIndications: type 2 diabetes mellitus Inject 38 Units under the skin daily E11.65 01/10/2025 Active Active Problems Problem Noted Date Diagnosed Date Type 2 diabetes mellitus wit h hyperglycemia, with long-term current use of insulin 09/22/2023 Assessment & Plan (09/30/2024 10:27 AM CDT): This is a chronic condition which is improving but not at goal . Goal is less than 7-8%. We discussed adding more medication. She declined. Stating I am 84 yrs old and I am doing fine. Personally reviewed most recent A1c - Lab Results Component Value Date HGBA1C 8.9 09/30/2024 Personally reviewed POC blood sugar- at goal of 80-180 Lab Results Component Value Date POCGLU 162 09/30/2024 Medication- continue Xultophy 34 units daily Monitor blood sugar daily. Encouraged annual eye exam. eGFR- >60 Kidney function-normal Urine microalbumin/creatinine ratio - elevated. Goal is <30 Continue amlodipine, hctz. Assessment & Plan (03/31/2024 12:15 PM CDT): This is a chronic condition which is improving but not at goal . Goal is less than 7-8%. Personally reviewed most recent A1c - recent A1c from PCP was 9%. Labs faxed into [facility] Lab Results Component Value Date HGBA1C 10.2 12/24/2023 Personally reviewed POC blood sugar- not at goal of 80-180 Lab Results Component Value Date POCGLU 229 03/31/2024 Medication- increase Xultophy 34 units daily. Has applied for [employer] patient assistance program but has not heard any response. We faxed patient assistance program forms Monitor blood sugar daily. Encouraged annual eye exam. Personally reviewed CMP eGFR- greater than 60 Kidney function-normal Urine microalbumin/creatinine ratio - slightly elevated, not at goal. Goal is <30 Continue a amlodipine, carvedilol, losartan, hydrochlorothiazide Assessment & Plan (12/24/2023 3:38 PM AIR TRANSPORTATION PROVIDER): This is a chronic condition which is out of control, not at goal of less than 7%. Personally reviewed most recent A1c - Lab Results Component Value Date HGBA1C 10.2 12/24/2023 Personally reviewed POC blood sugar- not at goal 80-180 Lab Results Component Value Date POCGLU 245 12/24/2023 Medication- started Xultophy 30 units daily- First dose given today in the office. application sent for [employer] patient assistance program. Monitor blood sugar daily a.m.. Call blood sugars on Thursday for further titration of insulin. Encouraged annual eye exam. Personally reviewed CMP eGFR- >60 Kidney function- normal Urine microalbumin/creatinine ratio - not at goal <30 treated with losartan, amlodipine, carvedilol, HCTZ B/P today- not at goal of <140/90. continue losartan, amlodipine, carvedilol, HCTZ Not on statin therapy Assessment & Plan (09/22/2023 2:28 PM CDT): This is a chronic condition which is out of control not at goal of less than 7% due to forgetting to take medications. Personally reviewed most recent A1c - 11.8% due to lack of medication Personally reviewed POC blood sugar- not at goal 80-180 Medication- stop Humalog 75/25 45 units twice daily, start Xultophy 30 units daily- application sent for [employer] patient assistance program. Monitor blood sugar daily in am. Has used sensor in the past and does not like it. Encouraged annual eye exam. Monofilament foot exam completed. protective senses intact Personally reviewed CMP eGFR- >60 Kidney function- normal Urine microalbumin/creatinine ratio - not at goal <30 not treated with losartan, amlodipine, carvedilol B/P today- at goal of <140/90. continue losartan, amlodipine, carvedilol Goal of less than 70. Not on statin therapy Hypertension associated with type 2 diabetes avani litus 09/22/2023 Assessment & Plan (09/30/2024 8:57 AM CDT): This is a chronic condition which is at goal. Goal is less than 140/90 Continue amlodipine, hctz Encouraged to monitor weight and B/P at home. Assessment & Plan (03/31/2024 12:16 PM CDT): This is a chronic condition which is not at goal upon arrival. Blood pressure dropped to goal after 15 minutes of rest in the office. Goal is less than 140/90 Personally reviewed labs. Continue amlodipine, carvedilol, losartan, hydrochlorothiazide Encouraged to monitor weight and B/P at home Encouraged to take medications as prescribed. Assessment & Plan (12/24/2023 3:37 PM AIR TRANSPORTATION PROVIDER): This is a chronic condition which is at goal of less than 140/90 after 5 minutes of rest Personally reviewed labs. Continue losartan, amlodipine, carvedilol, HCTZ, losartan Encouraged to monitor weight and B/P at home Encouraged to take medications as prescribed. Assessment & Plan (09/22/2023 2:34 PM CDT): This is a chronic condition which is at goal of less than 140/90 after 5 minutes of rest. Personally reviewed labs. Continue amlodipine, carvedilol, hydrochlorothiazide, losartan Encouraged to monitor weight and B/P at home Encouraged to take medications as prescribed. Resolved Problems Problem Noted Date Diagnosed Date Resolved Date Hyperlipidemia associated wi th type 2 diabetes mellitus 03/31/2024 03/31/2024 Social History Tobacco Use Types Packs/Day Years Used Date Smoking Tobacco: Never Comments Unknown Sex and Gender Information Value Date Recorded Sex Assigned at Not on file Legal Sex Female 9:27 AM CDT Gender Identity Not on file Sexual Orientation Not on file Last Filed Vital Signs Vital Sign Reading Time Taken Comments Blood Pressure 166/90 01/10/2025 11:06 AM AIR TRANSPORTATION PROVIDER Pulse - - Temperature - - Respiratory Rate - - Oxygen Saturation - - Inhaled Oxygen Concentration - - Weight 68.6 kg (151 lb 3.2 oz) 01/10/2025 11:06 AM AIR TRANSPORTATION PROVIDER Height 160 cm (5' 3 ) 01/10/2025 11:06 AM AIR TRANSPORTATION PROVIDER Body Mass Index 26.78 01/10/2025 11:06 AM AIR TRANSPORTATION PROVIDER Plan of Treatment Not on file Procedures Procedure Name Priority Date/Time Associated Diagnosis Comments POCT HEMOGLOBIN A1C Routine 01/10/2025 1 1:12 AM AIR TRANSPORTATION PROVIDER Type 2 diabetes mellitus with hyperglycemia, with long-term current use of insulin (HCC) POCT GLUCOSE Routine 01/10/2025 11:11 AM AIR TRANSPORTATION PROVIDER Type 2 diabetes mellitus with hyperglycemia, with long-term current use of insulin (HCC) COMPREHENSIVE METABOLIC PANEL Routine 07/28/2024 LIPID PANEL Routine 03/24/2024 DIABETIC EYE EXAM Routine 09/07/2023 ALBUMIN CREATININE RATIO, URINE Routine 07/13/2023 from Last 3 Months or Most Recently Relevant to Health Maintenance Results * (ABNORMAL) POCT hemoglobin A1c (01/10/2025 11:12 AM AIR TRANSPORTATION PROVIDER) [facility] Hemoglobin A1C, POC 9.0 4.0 - 5.6 % Blood 01/10/2025 11:1 2 AM AIR TRANSPORTATION PROVIDER Jessi Mac NP POINT OF CARE TEST ORDERABLES F inal Result * POCT glucose (01/10/2025 11:11 AM AIR TRANSPORTATION PROVIDER) [facility] Glucose Blood, POC 236 mg/dL Blood 01/10/2025 11:1 1 AM AIR TRANSPORTATION PROVIDER Jessi Mac NP POINT OF CARE TEST ORDERABLES F inal Result * (ABNORMAL) Comprehensive metabolic panel (07/28/2024) Pathologist [facility] SCRIBED Sodium 137 135 - 146 mmol/L EXTERNAL LAB SCRIBED Potassium 4.0 3.5 - 5.3 mmol/L EXTERNAL LAB SCRIBED Chloride 102 98 - 110 mmol/L EXTERNAL LAB SCRIBED Carbon Dioxide 28 20 - 32 mmol/L EXTERNAL LAB SCRIBED Urea Nitrogen (BUN) 14 7 - 25 mg/dl EXTERNAL LAB SCRIBED Creatinine 0.76 0.60 - 0.95 mg/dl EXTERNAL LAB SCRIBED Glucose 229(A) 65 - 99 mg/dl EXTERNAL LAB SCRIBED Calcium 10.2 8.6 - 10.4 mg/dl EXTERNAL LAB SCRIBED Bilirubin 0.5 0.2 - 1.2 mg/dl EXTERNAL LAB SCRIBED Plasma Protein 6.6 6.1 - 8.1 g/dl EXTERNAL LAB SCRIBED Albumin 4.0 3.6 - 5.1 g/dl EXTERNAL LAB SCRIBED Alkaline Phosphatase 123 37 - 153 Units/L EXTERNAL LAB SCRIBED Alanine Transaminase (ALT) 12 6 - 29 Units/L EXTERNAL LAB SCRIBED Aspartate Transaminase (AST) 10 10 - 35 Units/L EXTERNAL LAB SCRIBED eGFR in 77 0 - >60 EXTERNAL LAB SCRIBED eGFR in NonAfrican Taiwanese 77 0 - >60 EXTERNAL LAB Blood 07/28/2024 Result [facility] Historical Provider LAB BLOOD ORDERABLES Elis l Result Performing Organization Address City/[facility]/ZIP Co de Phone Number EXTERNAL LAB * Lipid panel (03/24/2024) SCRIBED Cholesterol, Total 151 0 - 200 EXTERNAL LAB SCRIBED HDL 54 50 - >50 EXTERNAL LAB SCRIBED LDL 82 0 - 100 EXTERNAL LAB SCRIBED Triglycerides 72 0 - 150 EXTERNAL LAB Blood 03/24/2024 Result [facility] Historical Provider LAB BLOOD ORDERABLES Elis l Result Performing Organization Address [facility]/ZIP Co de Phone Number EXTERNAL LAB * (ABNORMAL) Diabetic Eye Exam (09/07/2023) Result [facility] Historical Provider HEALTH MAINTENANCE Final Result * (ABNORMAL) Albumin Creatinine Ratio, Urine (07/13/2023) SCRIBED Creatinine, Urine 290.19(A) 40 - 278 EXTERNAL LAB SCRIBED Microalbumin 144.3(A) 1.0 - 30.0 EXTERNAL LAB SCRIBED Microalb/Creat Ratio 49.7 EXTERNAL LAB Urine 07/13/2023 Result [facility] Historical Provider LAB URINE ORDERABLES Elis l Result EXTERNAL LAB from Last 3 Months or Most Recently Relevant to Health Maintenance Insurance [facility] MEDICARE [facility] Care Teams Ham Boner Relationship Specialty Start Date End Date Karlo Law MD PCP - General Internal Medicine 08/13/23
--- OUTSIDE RECORDS SUMMARY | 2025-02-18 10:15 | XMS_ITS | Clinical Summary ---
Author Organization [facility] Medical Office Building B Address [address] [place] [address] Care Team Providers Care Manager Room Name Role Phone Karlo Law MD Primary Care Provider [phone] Allergies No known active allergies Medications Synthroid [...] Active pen needle, diabetic 32 gauge x 32 needle Use to inject insulin daily. E11.65. [...] from PCP was 9%. Labs faxed into [facility] Results Component Value Date HGBA1C 10.2 12/24/2023 Personally reviewed POC blood sugar- not at goal of 80-180 Lab Results Component Value Date POCGLU 229 03/31/2024 Medication- increase Xultophy 34 units daily. Has applied for [employer] patient assistance program but has not heard any response. We faxed patient assistance program forms Monitor blood sugar daily. Encouraged annual eye exam. Personally reviewed CMP eGFR- greater than 60 Kidney function-normal Urine microalbumin/creatinine ratio - slightly elevated, not at goal. Goal is <30 Continue a amlodipine, carvedilol, losartan, hydrochlorothiazide Assessment & Plan (12/24/2023 3:38 PM LOAN [employer]): This is a chronic condition which is [...] today in the office. application sent for [employer] patient assistance program. Monitor blood sugar daily [...] Xultophy 30 units daily- application sent for [employer] patient assistance program. Monitor blood sugar daily [...] prescribed. Assessment & Plan (12/24/2023 3:37 PM LOAN [employer]): This is a chronic condition which is [...] th type 2 diabetes mellitus 03/31/2024 03/31/2024 Encounters Date Type Department Care Team Description 01/10/2025 11:00 AM LOAN INTERVIEWER [employer]ORTGAGE Office Visit [facility] Medical Group Diabetes Endocrine Care at [address] [address] Jessi Mac, BREN Type 2 diabetes mellitus with hyperglycemia, with long-term current use of insulin (HCC) (Primary Dx); Hypertension associated with type 2 diabetes mellitus (HCC) from Last 3 Months Social History Tobacco Use Types Packs/Day Years Used Date Smoking Tobacco: Never Comments Unknown Sex and Gender Information Value Date Recorded Sex Assigned at Not on file Legal Sex Female 9:27 AM CDT Gender Identity Not on file Sexual Orientation Not on file Obstetrics History Last Filed Vital Signs Vital Sign Reading Time Taken Comments Blood Pressure 166/90 01/10/2025 11:06 AM LO[employer]GAGE Pulse - - Temperature - - Respiratory Rate - - Oxygen Saturation - - Inhaled Oxygen Concentration - - Weight 68.6 kg (151 lb 3.2 oz) 01/10/2025 11:06 AM LOAN INTERVIEWER [employer]GAGE Height 160 cm (5' 3 ) 01/10/2025 11:06 AM LOAN INTERVIEWER [employer]GAGE Body Mass Index 26.78 01/10/2025 11:06 AM LOAN [employer] Plan of Treatment Health Maintenance Due Date Last Done Comments Depression Screening 1940 Fall Risk Assessment 1940 Osteoporosis Screening-Bone Density Scan 1940 Foot Exam 1940 DTaP/Tdap/Td Vaccine (1 - Tdap) 1951 Hepatitis B Screening 1958 Zoster Vaccine (1 of 2) 1990 Well Visit 65+ 2005 Albumin Creatinine Ratio, Urine 07/13/2024 Covid-19 Vaccine (4 - 2023-2 5 season) 2024 11/20/2021, 02/20/2021, 01/23/2021 Influenza Vaccine (#1) 2024 3, 09/14/2022, 11/04/2021, Additional history exists Dilated Eye Exam 09/07/2024 09/07/2023 Lipid Panel 03/24/2025 03/24/2024 Hemoglobin A1C 07/10/2025 01/10/2025, 11/0 11/2023, 09/29/2024, Additional history exists eGFR 07/28/2025 07/28/2024, 04/2 03/2024, 03/24/2024, Additional history exists Pneumococcal vaccine 65+ Completed 08/11/2023 Procedures Procedure Name Priority Date/Time Associated Diagnosis Comments POCT HEMOGLOBIN A1C Routine 01/10/2025 1 1:12 AM LOAN [employer]ER [employer]GAGE Type 2 diabetes mellitus with hyperglycemia, with long-term current use of insulin (HCC) POCT GLUCOSE Routine 01/10/2025 11:11 AM LOAN INTERVIEWER [employer]GAGE Type 2 diabetes mellitus with hyperglycemia, with long-term current use of insulin (HCC) COMPREHENSIVE METABOLIC PANEL Routine 07/28/2024 LIPID PANEL Routine 03/24/2024 DIABETIC EYE EXAM Routine 09/07/2023 ALBUMIN CREATININE RATIO, URINE Routine 07/13/2023 from Last 3 Months or Most Recently Relevant to Health Maintenance Results * (ABNORMAL) POCT hemoglobin A1c (01/10/2025 11:12 AM LOAN INTER[employer]) Hemoglobin A1C, POC 9.0 4.0 - 5.6 % Blood 01/10/2025 11:1 2 AM [employer] Jessi Mac NP POINT OF CARE TEST ORDERABLES F inal Result * POCT glucose (01/10/2025 11:11 AM LOAN INTER[employer]) Glucose Blood, POC 236 mg/dL Blood 01/10/2025 11:1 1 AM LO[employer] INTER[employer] Jessi Mac NP POINT OF CARE TEST ORDERABLES F inal Result * (ABNORMAL) Comprehensive metabolic panel (07/28/2024) SCRIBED Sodium 137 135 - 146 mmol/L [...] >60 EXTERNAL LAB SCRIBED eGFR in NonAfrican Equatorial Guinean 77 0 - >60 EXTERNAL LAB Blood 07/28/2024 Historical Provider LAB BLOOD ORDERABLES Elis l Result EXTERNAL LAB * Lipid panel (03/24/2024) SCRIBED Cholesterol, Total 151 0 - 200 EXTERNAL LAB SCRIBED HDL 54 50 - >50 EXTERNAL LAB SCRIBED LDL 82 0 - 100 EXTERNAL LAB SCRIBED Triglycerides 72 0 - 150 EXTERNAL LAB Blood 03/24/2024 Historical Provider LAB BLOOD ORDERABLES Elis l Result EXTERNAL LAB * (ABNORMAL) Diabetic Eye Exam (09/07/2023) Historical Provider HEALTH MAINTENANCE Final Result * (ABNORMAL) Albumin Creatinine Ratio, Urine (07/13/2023) SCRIBED Creatinine, Urine 290.19(A) 40 - 278 EXTERNAL LAB SCRIBED Microalbumin 144.3(A) 1.0 - 30.0 EXTERNAL LAB SCRIBED Microalb/Creat Ratio 49.7 EXTERNAL LAB Urine 07/13/2023 Historical Provider LAB URINE ORDERABLES Elis l Result Performing Organization Address City/[facility]/ZIP Co de Phone Number EXTERNAL LAB from Last 3 Months or Most Recently Relevant to Health Maintenance Insurance [facility]ICARE [facility] MEDICARE [facility] Care Teams Manager Room Relationship Specialty Start Date End Date Karlo Law MD PCP - General Internal Medicine 08/13/23
--- OUTSIDE RECORDS SUMMARY | 2025-02-18 10:15 | XMS_ITS | Patient Health Record ---
Author Organization [facility] Address [address] [place], [place] [id number] Care Team Providers Care Director Stars Name Role Phone LIVIA JONES Unavailable [phone] Bubba Fabian Unavailable Unavailable Allergies No Known Allergies Reason For Referral No Information Medications Medication SIG (Take, Route, Frequency, Duration) Notes Start Date End Date Status paroxetine hydrochloride 10 MG Oral Tablet ORAL paroxetine hydrochloride 10 MG Oral TabletOriginal Medicationparoxetine hydrochloride 10 MG Oral Tablet *Reorder from [email or web address] for eRx and Interaction Alerts* 017 Active levothyroxine sodium 0.05 MG Oral Capsule ORAL levothyroxine sodium 0.05 MG Oral CapsuleOriginal Medicationlevothyroxine sodium 0.05 MG Oral Capsule *Reorder from [email or web address] for eRx and Interaction Alerts* 017 Active alendronic acid 70 MG Oral Tablet ORAL alendronic acid 70 MG Oral TabletOriginal Medicationalendronic acid 70 MG Oral Tablet *Reorder from [email or web address] for eRx and Interaction Alerts* 017 Active 3 ML insulin lispro 25 UNT/ML / insulin lispro protamine, human 75 UNT/ML Pen Injector [Humalog Mix] 3 ML insulin lispro 25 UNT/M L / insulin lispro protamine, human 75 UNT/ML Pen Injector [Humalog Mix]Original Medication3 ML insulin lispro 25 UNT/ML / insulin lispro protamine, human 75 UNT/ML Pen Injector [Hum 017 Active cholecalciferol 0.025 MG Oral Capsule ORAL cholecalciferol 0.025 MG Ora l CapsuleOriginal Medicationcholecalciferol 0.025 MG Oral Capsule *[facility] from [facility]Rx and Interaction Alert[facility]* 017 Active amlodipine 10 MG Oral Tablet ORAL amlodipine 10 MG Oral TabletOriginal Medicationamlodipine 10 MG Oral Tablet *Reorder from [facility] for eRx and Interaction Alerts* 017 Active 24 HR metoprolol succinate 200 MG Extended Release Oral Tablet ORAL 24 HR metoprolol succinate 2 00 MG Extended Release Oral TabletOriginal [id number] HR metoprolol succinate 200 MG Extended Release Oral Tablet *Reorder from [facility] for eRx and Interaction Alerts* 017 Active Lisinopril 40 MG Oral Tablet ORAL lisinopril 40 MG Oral TabletOriginal Medicationlisinopril 40 MG Oral Tablet *Reorder from [facility] for eRx and Interaction Alerts* 017 Active hydroCHLOROthiazide 25 MG Oral Tablet ORAL hydrochlorothiazide 25 MG Or al TabletOriginal Medicationhydrochlorothiazide 25 MG Oral Tablet *Reorder from [facility] and Interaction Alerts* 017 Active Plan Of Treatment No Information Insurance Providers Payer Name Payer Address Payer Phone Subscriber Number Group Number Insured Name Patient Relationship to Insured Coverage Start Date Coverage End Date Medicare Part B [facility] [address] [phone] [id number] N[place] [place] Self - patient is the insured [employer] [address] [facility] [place] [address] [id number] NURYS CORTES Self - patient is the insured
--- OUTSIDE RECORDS SUMMARY | 2025-02-18 10:15 | XMS_ITS ---
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 Name Role Phone LIVIA JONES Unavailable [phone] Bubba Fabian Unavailable Unavailable YASMIN Rosario Unavailable [phone] Allergies No Known Allergies REASON FOR VISIT *Diabetic foot exam Medications Medication SIG (Take, Route, Frequency, Duration) Notes Start Date End Date Status levothyroxine sodium 0.05 MG Oral Capsule ORAL levothyroxine sodium 0.05 MG Oral CapsuleOriginal Medicationlevothyroxine sodium 0.05 MG Oral Capsule *Reorder from [employer] for eRx and Interaction Alerts* 017 Active paroxetine hydrochloride 10 MG Oral Tablet ORAL paroxetine hydrochloride 10 MG Oral TabletOriginal Medicationparoxetine hydrochloride 10 MG Oral Tablet *Reorder from [employer] for eRx and Interaction Alerts* 017 Active 24 HR metoprolol succinate 200 MG Extended Release Oral Tablet ORAL 24 HR metoprolol succinate 2 00 MG Extended Release Oral TabletOriginal [id number] HR metoprolol succinate 200 MG Extended Release Oral Tablet *Reorder from [employer] for eRx and Interaction Alerts* 017 Active hydroCHLOROthiazide 25 MG Oral Tablet ORAL hydrochlorothiazide 25 MG Or al TabletOriginal Medicationhydrochlorothiazide 25 MG Oral Tablet *Reorder from [employer] for eRx and Interaction Alerts* 017 Active Lisinopril 40 MG Oral Tablet ORAL lisinopril 40 MG Oral TabletOriginal Medicationlisinopril 40 MG Oral Tablet *Reorder from [employer] for eRx and Interaction Alerts* 017 Active [...] Medicationcholecalciferol 0.025 MG Oral Capsule *Reorder from [employer] for eRx and Interaction Alerts* 017 Active alendronic acid 70 MG Oral Tablet ORAL alendronic acid 70 MG Oral TabletOriginal Medicationalendronic acid 70 MG Oral Tablet *Reorder from [employer] for eRx and Interaction Alerts* 017 Active amlodipine 10 MG Oral Tablet ORAL amlodipine 10 MG Oral TabletOriginal Medicationamlodipine 10 MG Oral Tablet *Reorder from [employer] for eRx and Interaction Alerts* 017 Active Vital Signs Weight 168 lbs 09/10/2023 Weight-kg 76.2 kg 09/10/2023 Height 66.00 in 09/10/2023 Height-cm 167.64 cm 09/10/2023 BMI 27.11 kg/m2 09/10/2023 Encounters Encounter Location Date Provider Diagnosis [facility] [address] [place], [place] [id number] 09/10/2023 YASMIN Rosario Onychomycosis B35.1 ; Pain in right toe(s) M79.674 ; Pain in left toe(s) M79.675 ; 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, bilateral legs I70.213 and Type 2 diabetes mellitus without complication, without long-term current use of insulin E11.9 Assessments Encounter Date Diagnosis (ICD Code) Assessment Notes Treatment Notes Treatment Clinical Notes Section Notes 09/10/2023 Onychomycosis (ICD-10 - B35.1) NAIL DEBRIDEMENT: Nails 1-5 Bilateral were debrided extensively with nail nippers and emery board, reducing length and girth to pink healthy tissue with any subungual debris and necrotic tissue removed 09/10/2023 Pain in right toe(s) (ICD-10 - M79.674) 09/10/2023 Pain in left toe(s) (ICD-10 - M79.675) 09/10/2023 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 Diabetic preventive care provided as documented. Diabetic foot care education discussed today to including: daily foot inspections, appropriate protective shoe gear, and strict glycemic control. Patient to return to the office routinely for preventive diabetic foot care or sooner if patient notices any acute changes. 09/10/2023 Other Shoe Gear Recommendation: Advised patient on appropriate shoe gear for protection, healing and good foot health Emollient: Recommend that the patient use an emollient such as [id number] r Eucerin cream, Vanicream, or other lotion to the affected area. Plan Of Treatment Treatment Notes Assessment Notes Onychomycosis NAIL DEBRIDEMENT: Na ils 1-5 Bilateral were debrided extensively with nail nippers and emery board, reducing length and girth to pink healthy tissue with any subungual debris and necrotic tissue removed Type 2 diabetes mellitus wit hout complication, without long-term current use of insulin DIABETIC FOOT CARE: Both feet were examined today. Diabetic preventive care provided as documented. Diabetic foot care education discussed today to including: daily foot inspections, appropriate protective shoe gear, and strict glycemic control. Patient to return to the office routinely for preventive diabetic foot care or sooner if patient notices any acute changes. Other Shoe Gear Recommendation: Advised patient on appropriate shoe gear for protection, healing and good foot health Emollient: Recommend that the patient use an emollient such as [id number] Eucerin cream, Vanicream, or other lotion to the affected area. Next Appt Details Follow Up: 9 weeks, Reason: at risk foot care Progress Notes * AVERYNURYS GOMEZ FDOB: 0 (83 yo F)Acc No.[id number]:09/10/2023 Progress Notes Patient: NURYS VUONG Provider: Pam Camargo DPM :1940 A ge:83 Y S ex:Female Date:09/10/2023 Address:[address] [id number] Subjective: * Chief Complaints: * 1 . *Diabetic foot exam. * HPI: H PI: General care P kate presents to the office for diabetic foot care. Patient states that her diabetes is not well controlled and is going to see an section housekeeper soon. Patient's last A1C was 10%. Patient states that their nails are thickened, elongated and painful. Patient states that it is aggravated by shoe gear. Patient denies any other complaints at this time. MA: .. * ROS: G eneral / Constitutional: Patient denies c hills, fatigue, fever. C ardiovascular: Patient denies c ongenital heart problems, palpatations, shortness of breath. P atient complains of h air loss on legs. M usculoskeletal: Patient denies o rthotic use, broken foot bone, muscle cramps. S kin: Patient complains of f ungal nails, dry skin, nail changes.? N eurologic: Patient denies s troke, loss of use of extremity, confusion. * Medical History: * Medications: T aking hydroCHLOROthiazide 25 MG Oral Tablet ORAL , Notes to Pharmacist: hydrochlorothiazide 25 MG Oral TabletOriginal Medicationhydrochlorothiazide 25 MG Oral Tablet *Reorder from [employer] for eRx and Interaction Alerts*, Taking Lisinopril 40 MG Oral Tablet ORAL , Notes to Pharmacist: lisinopril 40 MG Oral TabletOriginal Medicationlisinopril 40 MG Oral Tablet *[facility] and Interaction Alert[facility]*, Taking 24 HR metoprolol succinate 200 MG Extended Release Oral Tablet ORAL , Notes to Pharmacist: 24 HR metoprolol succinate 200 MG Extended Release Oral TabletOriginal [id number] HR metoprolol succinate 200 MG Extended Release Oral Tablet *[facility] for [facility]Rx and Interaction Alerts*, Taking 3 [...] acid 70 MG Oral Tablet *Reorder from [facility] for eRx and Interaction Alerts*, Taking amlodipine 10 MG Oral Tablet ORAL , Notes to Pharmacist: amlodipine 10 MG Oral TabletOriginal Medicationamlodipine 10 MG Oral Tablet *Reorder from [facility] for eRx and Interaction Alerts*, Taking cholecalciferol 0.025 MG Oral Capsule ORAL , Notes to Pharmacist: cholecalciferol 0.025 MG Oral CapsuleOriginal Medicationcholecalciferol 0.025 MG Oral Capsule *Reorder from [facility] for eRx and Interaction Alerts*, Taking levothyroxine sodium 0.05 MG Oral Capsule ORAL , Notes to Pharmacist: levothyroxine sodium 0.05 MG Oral CapsuleOriginal Medicationlevothyroxine sodium 0.05 MG Oral Capsule *Reorder from [facility] for eRx and Interaction Alerts*, Taking paroxetine hydrochloride 10 MG Oral Tablet ORAL , Notes to Pharmacist: paroxetine hydrochloride 10 MG Oral TabletOriginal Medicationparoxetine hydrochloride 10 MG Oral Tablet *Reorder from [facility] for eRx and Interaction Alerts* * Allergies: N .K.D.A. Objective: * Vitals: W t: 168 lbs, Wt-k.2 kg, Ht: 66.00 in, Ht-cm: 167.64 cm, BMI: 27.11 Index, Body Surface Area: 1.88. * Examination: C onstitutional: Constitutional T he patient is awake, alert, well developed, well groomed and well nourished.. M usculoskeletal: Muscle Strength M uscle strength is 5/5 in regards to dorsiflexion, plantarflexion, inversion, and eversion in bilateral lower extremities.. Foot Structure T he foot structure is noted to be, normal, bilaterally. Gait T here is normal gait noted. N eurologic: Vibratory: n ormal, bilateral. [place] 5.07 monofilament I ntact protective sensation via 5.07 g swmf bilateral. Gross sensation G ross sensation is intact to light touch..? V ascular: Dorsalis pedis pulse: 1 /4, bilateral. Posterior tibial pulse: 0 /4, bilaterally. Capillary refill: l ess than 3 seconds, bilaterally. ? D ermatologic: Skin findings: S kin is thin, atrophic and lacking pedal hair.. Nail pathology: N ails 1-5 bilateral are elongated, thick, discolored, and dystrophic with subungual debris. 5th digit nails are esequiel horn appearance and curling underneath the digit. They are painful to palpation. Hyperkeratotic Skin Lesion T here is no evidence of hyperkeratosis. Assessment: * Assessment: 1. O nychomycosis - B35.1 (Primary) 2 . P ain in right toe(s) - M79.674 3 . P ain in left toe(s) - M79.675 4 . A therosclerosis of quechan arteries of extremities with intermittent claudication, bilateral legs - I70.213 5 . T ype 2 diabetes mellitus without complication, without long-term current use of insulin - E11.9 Plan: * Treatment: 2. T ype 2 diabetes mellitus without complication, without long-term current use of insulin Notes: DIABETIC FOOT CARE: Both feet were examined today. Diabetic preventive care provided as documented. Diabetic foot care education discussed today to including: daily foot inspections, appropriate protective shoe gear, and strict glycemic control. Patient to return to the office routinely for preventive diabetic foot care or sooner if patient notices any acute changes. 3. O thers Notes: Shoe Gear Recommendation: Advised patient on appropriate shoe gear for protection, healing and good foot health Emollient: Recommend that the patient use an emollient such as [id number] Eucerin cream, Vanicream, or other lotion to the affected area. . * Procedure Codes: 1 1721 DEBRIDE NAIL, 6 OR MORE, Modifiers: Q8 * Follow Up: 9 weeks (Reason: at risk foot care) * Billing Information: * Visit Code: 64210 Office Visit, New Pt., Level 3. Modifiers: 25 * Procedure Codes: 90755 DEBRIDE NAIL, 6 OR MORE. Modifiers: Q8 * Sign off status: Completed true * Provider: Pam Camargo DPM Date: 1 Generated for Jayla mendiola/Kory/Gabrielle on: 0 02/18/2025 10:15 AM CDT History and Physical Notes * HPI (History of Present Illness) Category Sub-Category Detail Notes Category Not es HPI General care Patient presents to the office for diabetic foot care. Patient states that her diabetes is not well controlled and is going to see an section housekeeper soon. Patient's last A1C was 10%. Patient states that their nails are thickened, elongated and painful. Patient states that it is aggravated by shoe gear. Patient denies any other complaints at this time. MA: . Examination Category Sub-Category Detail Notes Category Not es Dermatologic Skin findings: Skin is thin, at rophic and lacking pedal hair. Nail pathology: Nails 1-5 bilateral are elongated, thick, discolored, and dystrophic with subungual debris. 5th digit nails are esequiel horn appearance and curling underneath the digit. They are painful to palpation Hyperkeratotic Skin Lesion There is no e vidence of hyperkeratosis Neurologic Vibratory: normal, bilateral [place] 5.07 monofilament Intact protective sensation via 5.07 g swmf bilateral Gross sensation Gross sensation is i ntact to light touch. Vascular Dorsalis pedis pulse: 1/4, bilateral Capillary refill: less than 3 seconds, bilaterally Posterior tibial pulse: 0/4, bilaterally Musculoskeletal Muscle Strength Muscle strength is 5/5 in regards to dorsiflexion, plantarflexion, inversion, and eversion in bilateral lower extremities. Foot Structure The foot structure i s noted to be, normal, bilaterally Gait There is normal gait noted Constitutional Constitutional The patient is a wake, alert, well developed, well groomed and well nourished.
[2025-02-18 10:37] LABS: Add Urine Microscopic? YES; Appearance Urine Sl Cloudy (Clear); Bilirubin Urine Negative (Negative); Blood Urine Negative (Negative); Color Urine Yellow (Yellow); Glucose Urine UA Negative (Negative); Ketones Urine Trace (Negative); Leukocyte Esterase Ur Trace (Negative); Nitrate Urine Negative (Negative); Protein Urine 1+ (Negative); Specific Grav Ur >= 1.030 (1.010-1.020); Urobilinogen Urine 0.2 mg/dL (0.2-1.0); pH Urine 5.5 (5.0-8.0)
[2025-02-18 10:43] LABS: Bacteria Urine 2+ /hpf; RBC Urine None seen /hpf (0-2); Squamous Epithelial Cell Urine Few /hpf (Few); WBC Urine 21-30 /hpf (0-3)
== END 2025-02-18 10:11 | disposition home or self-care (01) ==
LOC: CHSLAB 10:14
PROVIDERS: PCP Internal Medicine; Visit Provider Internal Medicine
DX: N39.0 Urinary tract infection, site not specified (principal)
CPT/HCPCS: 81001; 87086; 87186

== ENCOUNTER 2025-03-09 12:32 | Outpatient (CLI) | payer MEDICARE, OTHER, SELFPAY ==
--- NOTE | 2025-03-09 12:38 | ECHO_ITS ---
Patient Info Name: Mary Jo Ugalde Age: 84 years : 1940 Gender: Female Ht: 66 in Wt: 153 lbs BSA: 1.81 m2 HR: 77 bpm BP: 182 / 48 mmHg Heart Rhythm: Sinus Rhythm Technical Quality: Good Exam Date: 03/09/2025 1:10 PM Exam Location: Echo Lab Patient Status: Outpatient Admit Date: 03/09/2025 Staff Ordering Physician: Karlo Law MD Portable Power Tool Repairer: Pauline Almanza RDCS Attending Provider: Karlo Law MD Exam Type: CA echo doppler color flow Study Info Indications R94.31 - Abnormal electrocardiogram ECG EKG Complete two-dimensional, color flow and Doppler transthoracic echocardiogram is performed. Summary 1. Complete two-dimensional, color flow and Doppler transthoracic echocardiogram is performed. 2. Left ventricular chamber dimension is normal. 3. Left ventricular systolic function is normal, estimated at 60-65%. 4. There is mild concentric increased left ventricular wall thickness. 5. The left ventricular diastolic function is grade I diastolic dysfunction. 6. E/e' 12 is mildly elevated. 7. Left atrial chamber dimension is mildly enlarged. 8. There is trace aortic valve regurgitation. 9. The mitral valve has mildly calcified annulus. 10. There is mild mitral valve regurgitation. 11. There is trace tricuspid valve regurgitation. 12. No pulmonary hypertension, estimated pulmonary arterial systolic pressure is 26 mmHg. 13. There is trivial pericardial effusion. Left Ventricle E/e' 12 is mildly elevated. Left ventricular chamber dimension is normal. Left ventricular systolic function is normal, estimated at 60-65%. There is mild concentric increased left ventricular wall thickness. The left ventricular diastolic function is grade I diastolic dysfunction. Right Ventricle Right ventricular systolic function is normal and with normal TAPSE 1.9 cm. Right ventricular chamber dimension is normal. Left Atria Left atrial chamber dimension is mildly enlarged. Right Atria Right atrial chamber dimension is normal. Aortic Valve The aortic valve is trileaflet. There is no aortic valve stenosis. There is trace aortic valve regurgitation. Pulmonic Valve There is no pulmonic regurgitation. Mitral Valve The mitral valve has mildly calcified annulus. There is no mitral valve stenosis. There is mild mitral valve regurgitation. Tricuspid Valve There is trace tricuspid valve regurgitation. No pulmonary hypertension, estimated pulmonary arterial systolic pressure is 26 mmHg. Pericardium/Pleural There is trivial pericardial effusion. Inferior Vena Cava Normal inferior vena cava with >50% collapse upon inspiration consistent with normal right atrial pressure, 5 mmHg. Aorta The aortic root size at the sinus of Valsalva is normal. Left Ventricular Outflow Tract Name Value Normal LVOT 2D LVOT Diameter 2.0 cm LVOT Doppler LVOT Peak Velocity 110 cm/s LVOT Peak Gradient 5 mmHg LVOT Mean Gradient 3 mmHg LVOT VTI 22 cm LVOT VTI/AV VTI Ratio 0.7 LVOT Stroke Volume 67 ml LVOT CO 4.8 l/min LVOT CI 2.7 l/min/m2 Pulmonic Valve Name Value Normal RVOT Doppler RVOT Peak Gradient 2 mmHg PV Doppler PV Peak Velocity 86 cm/s PV Peak Gradient 3 mmHg Mitral Valve Name Value Normal MV Doppler MV Decel Elbert 273 cm/s2 MV PHT 72 ms MV Area (PHT) 3.0 cm2 4.0-5.0 MV Diastolic Function MV E Peak Velocity 68 cm/s MV A Peak Velocity 97 cm/s MV E/A 0.7 MV Decel Time 250 ms MV Annular TDI MV Septal e' Velocity 4.9 cm/s >=8.0 MV E/e' (Septal) 13.9 <=8.0 MV Lateral e' Velocity 6.3 cm/s >=10.0 MV E/e' (Lateral) 10.8 <=8.0 MV e' Average 5.59 MV E/e' (Average) 12.4 Tricuspid Valve Name Value Normal TV Regurgitation Doppler TR Peak Velocity 230 cm/s TR Peak Gradient 20 mmHg Estimated PAP/RSVP RA Pressure 5 mmHg <=5 PA Systolic Pressure 26 mmHg <36 RV Systolic Pressure 26 mmHg <36 TV Annular TDI TV Lateral Nelly s' Velocity 9.8 cm/s 9.5-18.7 Aorta Name Value Normal Ascending Aorta Ao Root Diameter (MM) 3.0 cm Ao Root Diam Index (MM) 1.6 cm/m2 Ao Sinotub Junction Diameter 2.7 cm 2.3-2.9 Aortic Valve Name Value Normal AV Doppler AV Peak Velocity 151 cm/s AV Peak Gradient 9 mmHg AV Mean Gradient 5 mmHg AV VTI 30 cm AV Area (Cont Eq VTI) 2.2 cm2 >=3.0 AV Area (Cont Eq Vincent) 2.2 cm2 AV V1/V2 Ratio 0.73 AV Regurgitation 2D LVOT Area 3.0 cm2 AV Regurgitation Doppler AR Decel Time 1,226 ms AR Decel Elbert 161 cm/s2 AR PHT 356 ms Ventricles Name Value Normal LV Dimensions 2D/MM IVS Diastolic Thickness (2D) 1.2 cm 0.6-1.0 LVID Diastole (2D) 3.7 cm 3.8-5.2 LVIW Diastolic Thickness (2D) 1.2 cm 0.6-0.9 LVID Systole (2D) 2.5 cm 2.2-3.5 LVOT Diameter 2.0 cm LV Mass (2D Cubed) 145.51 g 67.00-162.00 LV Mass Index (2D Cubed) 81 g/m2 43-95 Relative Wall Thickness (2D) 0.64 LV Fractional Shortening/Ejection Fraction 2D/MM LV Fractional Shortening (2D) 34 % 27-45 LV EF (2D Teicholz) 64 % 54-74 LV Diastolic Volume (4C MOD) 57 ml LV EF (4C MOD) 55 % LV Diastolic Volume (2C MOD) 53 ml LV EF (2C MOD) 58 % LV Diastolic Volume (BP MOD) 55 ml 46-106 LV Diastolic Volume Index (BP MOD) 31 ml/m2 29-61 LV Systolic Volume (BP MOD) 24 ml 14-42 LV Systolic Volume Index (BP MOD) 13 ml/m2 8-24 LV EF (BP MOD) 56 % 54-74 LV Diastolic Length (4C) 7.2 cm LV Systolic Length (4C) 6.5 cm LV Stroke Volume (4C MOD) 32 ml Atria Name Value Normal LA Dimensions LA Dimension (MM) 4.8 cm 2.7-3.8 LA Volume (4C A-L) 77 ml LA Volume (BP A-L) 83 ml RA Dimensions RA Area (4C) 7.0 cm2 <=18.0 Report Signatures
--- OUTSIDE RECORDS SUMMARY | 2025-03-09 12:51 | XMS_ITS ---
Author Organization [facility] Address [address] [place], [place] [id number] Care Team Providers Care Cutting And Printing Machine Operator Name Role Phone LIVIA JONES Unavailable [phone] Bubba Fabian Unavailable Unavailable YASMIN Rosario Unavailable [phone] Allergies No Known Allergies REASON FOR VISIT *Diabetic foot exam Medications Medication SIG (Take, Route, Frequency, Duration) Notes Start Date End Date Status levothyroxine sodium 0.05 MG Oral Capsule ORAL levothyroxine sodium 0.05 MG Oral CapsuleOriginal Medicationlevothyroxine sodium 0.05 MG Oral Capsule *Reorder from [employer] for eRx and Interaction Alerts* 017 Active paroxetine hydrochloride 10 MG Oral Tablet ORAL paroxetine hydrochloride 10 MG Oral TabletOriginal Medicationparoxetine hydrochloride 10 MG Oral Tablet *Reorder from [employer] for eRx and Interaction Alerts* 017 Active 24 HR metoprolol succinate 200 MG Extended Release Oral Tablet ORAL 24 HR metoprolol succinate 2 00 MG Extended Release Oral TabletOriginal [id number] HR metoprolol succinate 200 MG Extended Release Oral Tablet *Reorder from [employer] for eRx and Interaction Alerts* 017 Active hydroCHLOROthiazide 25 MG Oral Tablet ORAL hydrochlorothiazide 25 MG Or al TabletOriginal Medicationhydrochlorothiazide 25 MG Oral Tablet *Reorder from [employer] for eRx and Interaction Alerts* 017 Active Lisinopril 40 MG Oral Tablet ORAL lisinopril 40 MG Oral TabletOriginal Medicationlisinopril 40 MG Oral Tablet *Reorder from [employer] for eRx and Interaction Alerts* 017 Active [...] Medicationcholecalciferol 0.025 MG Oral Capsule *Reorder from [employer] for eRx and Interaction Alerts* 017 Active alendronic acid 70 MG Oral Tablet ORAL alendronic acid 70 MG Oral TabletOriginal Medicationalendronic acid 70 MG Oral Tablet *Reorder from [employer] for eRx and Interaction Alerts* 017 Active amlodipine 10 MG Oral Tablet ORAL amlodipine 10 MG Oral TabletOriginal Medicationamlodipine 10 MG Oral Tablet *Reorder from [employer] for eRx and Interaction Alerts* 017 Active Vital Signs Height 66.00 in 09/10/2023 Weight 168 lbs 09/10/2023 BMI 27.11 kg/m2 09/10/2023 Height-cm 167.64 cm 09/10/2023 Weight-kg 76.2 kg 09/10/2023 Encounters Encounter Location Date Provider Diagnosis [facility] [address] [place], [place] [id number] 09/10/2023 YASMIN Rosario Onychomycosis B35.1 ; Pain in right toe(s) M79.674 ; Pain in left toe(s) M79.675 ; Atherosclerosis of inaja arteries of extremities with intermittent claudication, bilateral [...] toe(s) (ICD-10 - M79.675) 09/10/2023 Atherosclerosis of inaja arteries of extremities with intermittent claudication, bilateral [...] the patient use an emollient such as [id number] r Eucerin cream, Vanicream, or other lotion [...] the patient use an emollient such as [id number] Eucerin cream, Vanicream, or other lotion to the affected area. Next Appt Details Follow Up: 9 weeks, Reason: at risk foot care Progress Notes * AVERYNURYS GOMEZ FDOB: 0 (83 yo F)Acc No.[id number]:09/10/2023 Progress Notes Patient: NURYS VUONG Provider: Pam Camargo DPM :1940 A ge:83 Y S ex:Female Date:09/10/2023 Address:[address] [facility] Subjective: * Chief Complaints: * 1 . *Diabetic foot exam. * HPI: H PI: General care P kate presents to the office for diabetic foot care. Patient states that her diabetes is not well controlled and is going to see an quality control clerk soon. Patient's last A1C was 10%. Patient [...] Medicationhydrochlorothiazide 25 MG Oral Tablet *Reorder from [employer] for eRx and Interaction Alerts*, Taking Lisinopril 40 MG Oral Tablet ORAL , Notes to Pharmacist: lisinopril 40 MG Oral TabletOriginal Medicationlisinopril 40 MG Oral Tablet *[facility] and Interaction Alert[facility]*, Taking 24 HR metoprolol succinate 200 MG Extended Release Oral Tablet ORAL , Notes to Pharmacist: 24 HR metoprolol succinate 200 MG Extended Release Oral TabletOriginal [id number] HR metoprolol succinate 200 MG Extended Release Oral Tablet *[facility] for [facility]Rx and Interaction Alerts*, Taking [...] acid 70 MG Oral Tablet *Reorder from [facility] for eRx and Interaction Alerts*, Taking amlodipine 10 MG Oral Tablet ORAL , Notes to Pharmacist: amlodipine 10 MG Oral TabletOriginal Medicationamlodipine 10 MG Oral Tablet *Reorder from [facility] for eRx and Interaction Alerts*, Taking cholecalciferol 0.025 MG Oral Capsule ORAL , Notes to Pharmacist: cholecalciferol 0.025 MG Oral CapsuleOriginal Medicationcholecalciferol 0.025 MG Oral Capsule *Reorder from [facility] for eRx and Interaction Alerts*, Taking levothyroxine sodium 0.05 MG Oral Capsule ORAL , Notes to Pharmacist: levothyroxine sodium 0.05 MG Oral CapsuleOriginal Medicationlevothyroxine sodium 0.05 MG Oral Capsule *Reorder from [facility] for eRx and Interaction Alerts*, Taking paroxetine hydrochloride 10 MG Oral Tablet ORAL , Notes to Pharmacist: paroxetine hydrochloride 10 MG Oral TabletOriginal Medicationparoxetine hydrochloride 10 MG Oral Tablet *Reorder from [facility] for eRx and Interaction Alerts* * Allergies: [...] noted. N eurologic: Vibratory: n ormal, bilateral. Tomales-Weinstin 5.07 monofilament I ntact protective sensation via [...] - M79.675 4 . A therosclerosis of inaja arteries of extremities with intermittent claudication, bilateral [...] the patient use an emollient such as [id number] Eucerin cream, Vanicream, or other lotion to the affected area. . * Procedure Codes: 1 1721 DEBRIDE NAIL, 6 OR MORE, Modifiers: Q8 * Follow Up: 9 weeks (Reason: at risk foot care) * Billing Information: * Visit Code: 52221 Office Visit, New Pt., Level 3. Modifiers: 25 * Procedure Codes: 23697 DEBRIDE NAIL, 6 OR MORE. Modifiers: Q8 * Sign off status: Completed true * Provider: Pam Camargo DPM Date: 1 Generated for Jayla mendiola/Kory/Gabrielle on: 0 03/09/2025 12:51 PM CDT History and Physical Notes * HPI (History of Present Illness) Category Sub-Category Detail Notes Category Not es HPI General care Patient presents to the office for diabetic foot care. Patient states that her diabetes is not well controlled and is going to see an quality control clerk soon. Patient's last A1C was 10%. Patient [...] vidence of hyperkeratosis Neurologic Vibratory: normal, bilateral Tomales-Weinstin 5.07 monofilament Intact protective sensation via 5.07 [...]
--- OUTSIDE RECORDS SUMMARY | 2025-03-09 12:51 | XMS_ITS | Clinical Summary ---
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
--- OUTSIDE RECORDS SUMMARY | 2025-03-09 12:51 | XMS_ITS | Patient Health Record ---
Author Organization [facility] Address [address] [place], [place] [address] Care Team Providers Care Musical Instrument Supervisor Name Role Phone LIVIA JONES Unavailable [phone] Bubba Fabian Unavailable Unavailable Allergies No Known Allergies Reason For Referral No Information Medications Medication SIG (Take, Route, Frequency, Duration) Notes Start Date End Date Status paroxetine hydrochloride 10 MG Oral Tablet ORAL paroxetine hydrochloride 10 MG Oral TabletOriginal Medicationparoxetine hydrochloride 10 MG Oral Tablet *Reorder from [employer] for eRx and Interaction Alerts* 017 Active levothyroxine sodium 0.05 MG Oral Capsule ORAL levothyroxine sodium 0.05 MG Oral CapsuleOriginal Medicationlevothyroxine sodium 0.05 MG Oral Capsule *Reorder from [employer] for eRx and Interaction Alerts* 017 Active alendronic acid 70 MG Oral Tablet ORAL alendronic acid 70 MG Oral TabletOriginal Medicationalendronic acid 70 MG Oral Tablet *Reorder from [employer] for eRx and Interaction Alerts* 017 Active [...] Medicationcholecalciferol 0.025 MG Oral Capsule *[facility] for eRx and Interaction Alerts* 017 Active amlodipine 10 MG Oral Tablet ORAL amlodipine 10 MG Oral TabletOriginal Medicationamlodipine 10 MG Oral Tablet *Reorder from [facility] for eRx and Interaction Alerts* 017 Active 24 HR metoprolol succinate 200 MG Extended Release Oral Tablet ORAL 24 HR metoprolol succinate 2 00 MG Extended Release Oral TabletOriginal [id number] HR metoprolol succinate 200 MG Extended Release Oral Tablet *Reorder from [facility] for eRx and Interaction Alerts* 017 Active Lisinopril 40 MG Oral Tablet ORAL lisinopril 40 MG Oral TabletOriginal Medicationlisinopril 40 MG Oral Tablet *Reorder from [facility] for eRx and Interaction Alerts* 017 Active hydroCHLOROthiazide 25 MG Oral Tablet ORAL hydrochlorothiazide 25 MG Or al TabletOriginal Medicationhydrochlorothiazide 25 MG Oral Tablet *[facility] from [facility] for eRx and Interaction Alerts* 017 Active Plan Of Treatment No Information Insurance Providers Payer Name Payer Address Payer Phone Subscriber Number Group Number Insured Name Patient Relationship to Insured Coverage Start Date Coverage End Date Medicare Part B [facility] [id number] [phone] [id number] NURYS CORTES Self - patient is the insured [employer] [address] [facility] [place], [place] [id number] NURYS CORTES Self - patient is the insured
--- OUTSIDE RECORDS SUMMARY | 2025-03-09 12:52 | XMS_ITS ---
Author Organization [facility] Address [address] [place], [place] [address] Care Team Providers Care Sample Driller Name Role Phone LIVIA JONES Unavailable [phone] Bubba Fabian Unavailable Unavailable JAYLEN PARISH Unavailable [phone] REASON FOR VISIT *General care Medications Medication SIG (Take, Route, Frequency, Duration) Notes Start Date End Date Status paroxetine hydrochloride 10 MG Oral Tablet ORAL paroxetine hydrochloride 10 MG Oral TabletOriginal Medicationparoxetine hydrochloride 10 MG Oral Tablet *Reorder from [employer] for eRx and Interaction Alerts* 017 Active levothyroxine sodium 0.05 MG Oral Capsule ORAL levothyroxine sodium 0.05 MG Oral CapsuleOriginal Medicationlevothyroxine sodium 0.05 MG Oral Capsule *Reorder from [employer] for eRx and Interaction Alerts* 017 Active alendronic acid 70 MG Oral Tablet ORAL alendronic acid 70 MG Oral TabletOriginal Medicationalendronic acid 70 MG Oral Tablet *Reorder from [employer] for eRx and Interaction Alerts* 017 Active cholecalciferol 0.025 MG Oral Capsule ORAL cholecalciferol 0.025 MG Ora l CapsuleOriginal Medicationcholecalciferol 0.025 MG Oral Capsule *Reorder from [employer] for eRx and Interaction Alerts* 017 Active amlodipine 10 MG Oral Tablet ORAL amlodipine 10 MG Oral TabletOriginal Medicationamlodipine 10 MG Oral Tablet *Reorder from [employer] for eRx and Interaction Alerts* 017 Active [...] 2 00 MG Extended Release Oral TabletOriginal [id number] HR metoprolol succinate 200 MG Extended Release Oral Tablet *Reorder from [employer] for eRx and Interaction Alerts* 017 Active Lisinopril 40 MG Oral Tablet ORAL lisinopril 40 MG Oral TabletOriginal Medicationlisinopril 40 MG Oral Tablet *[facility] for eRx and Interaction Alerts* 017 Active hydroCHLOROthiazide 25 MG Oral Tablet ORAL hydrochlorothiazide 25 MG Or al TabletOriginal Medicationhydrochlorothiazide 25 MG Oral Tablet *Reorder from [employer] for eRx and Interaction Alerts* 017 Active Encounters Encounter Location Date Provider Diagnosis [address] [id number] 12/10/2023 [facility] [place] Plan Of Treatment No Information Progress Notes * NURYS CORTES FDOB: 0 (84 yo F)Acc No.[id number]:12/10/2023 Patient: NURYS VUONG Provider: Morris [place] :1940 A ge:83 Y S ex:Female Date:12/10/2023 Address:[address] [place] [address] Subjective: * Chief Complaints: * 1 . *General care. * Medical History: * Medications: T aking hydroCHLOROthiazide 25 MG Oral Tablet ORAL , Notes to Pharmacist: hydrochlorothiazide 25 MG Oral TabletOriginal Medicationhydrochlorothiazide 25 MG Oral Tablet *Reorder from [employer] for eRx and Interaction Alerts*, Taking Lisinopril 40 MG Oral Tablet ORAL , Notes to Pharmacist: lisinopril 40 MG Oral TabletOriginal Medicationlisinopril 40 MG Oral Tablet *Reorder from [facility] for eRx and Interaction Alerts*, Taking 24 HR metoprolol succinate 200 MG Extended Release Oral Tablet ORAL , Notes to Pharmacist: 24 HR metoprolol succinate 200 MG Extended Release Oral TabletOriginal [id number] HR metoprolol succinate 200 MG Extended Release Oral Tablet *Reorder from [facility] for eRx and Interaction Alerts*, Taking [...] acid 70 MG Oral Tablet *Reorder from [facility] for eRx and Interaction Alerts*, Taking amlodipine 10 MG Oral Tablet ORAL , Notes to Pharmacist: amlodipine 10 MG Oral TabletOriginal Medicationamlodipine 10 MG Oral Tablet *Reorder from [facility] for eRx and Interaction Alerts*, Taking cholecalciferol 0.025 MG Oral Capsule ORAL , Notes to Pharmacist: cholecalciferol 0.025 MG Oral CapsuleOriginal Medicationcholecalciferol 0.025 MG Oral Capsule *Reorder from [facility] for eRx and Interaction Alerts*, Taking levothyroxine sodium 0.05 MG Oral Capsule ORAL , Notes to Pharmacist: levothyroxine sodium 0.05 MG Oral CapsuleOriginal Medicationlevothyroxine sodium 0.05 MG Oral Capsule *Reorder from [facility] for eRx and Interaction Alerts*, Taking paroxetine hydrochloride 10 MG Oral Tablet ORAL , Notes to Pharmacist: paroxetine hydrochloride 10 MG Oral TabletOriginal Medicationparoxetine hydrochloride 10 MG Oral Tablet *Reorder from [facility] for eRx and Interaction Alerts* Objective: * Vitals: Assessment: Plan: * Treatment: * Billing Information: * Visit Code: * Procedure Codes: * Electronic signature of VICKIE [place] DPM on 03/09/2025 at 12:51 PM CDT Sign off status: Pending * Provider: Morris [place] Date: 0 12/10/2023 Generated for Jayla mendiola/Kory/Gabrielle on: 0 03/09/2025 12:51 PM CDT
--- OUTSIDE RECORDS SUMMARY | 2025-03-09 12:52 | XMS_ITS | Continuity of Care Document ---
Author Organization [employer] [facility] [place] [address] [place] [address] Phone Care Team Providers Care Associate Professor Of Surgery Name Role Phone Bj TRAN FACS, Ney Paredes Unavailab le Allergies, Adverse Reactions, Alerts Substance Reaction Status Criticality No Known Allergies Active No Inform ation Medications Medication Instructions Dosage Effective Dates (start - stop) Status Comments Vitamin D3 100 mcg (4,000 unit) capsule take 1 by oral route every day - Active amlodipine 10 mg tablet take 1 tablet by oral route every day 10 MG - Active hydrochlorothiazide 25 mg tablet take 1 tablet by oral route every day 25 MG - Active lisinopril 40 mg tablet take 1 tablet by oral route every day 40 MG - Active metoprolol succinate ER 200 mg tablet,extended release 24 hr take 1 tablet by oral route every day 200 MG - Active paroxetine 10 mg tablet take 1 tablet by oral route every day 10 MG - Active magnesium 400 mg (as magnesium oxide) capsule take 1 by oral route every day 1 - Active Tirosint 50 mcg capsule take 1 capsule b y oral route every day 50 MCG - Active Humalog Mix 75-25 (U-100) Insulin 100 unit/mL subcutaneous suspension inject by subcutaneous route per prescriber's instructions. Insulin dosing requires individualization. 0.00 - Active metformin 500 mg tablet take 2 tablet by oral route every day with morning and evening meals 1000 MG - Active Procedures Procedure Date SCODI, Retina No Charge Optomap Fundus Photos 023 No Charge Refraction Visual Field Examination(s) Eye Exam & Treatment Dionisio-09-2023 Fundus Photography W/ Report No Charge Refraction Visual Field Examination(s) Eye Exam & Treatment Fundus Photography W/ Report Visual Field Examination(s) Office/outpatient Visit, Est SCODI, Retina No Charge Optomap Fundus Photos 020 Eye Exam, New Patient No Charge Refraction Advance Directives Directive Yes / No Effective Date File Name No Information Encounters Encounter Description Practice Location Reason(s) For Visit Diagnoses Date Provider Providers Copied on Encounter [facility], [address], [place], [place], [id number], tel:[phone] SEC Consuelo Eugenio Pittman No Information [address] Brewster[address], [address], [place], [place], [address], [place]. tel:[phone] [facility], [address], [place], [place], [address], [place] tel:[phone] SEC Salvador OLIVEIRA Professional diabetic eye exam (chief complaint) Exudative age-rel mclr degn, bi, with actv chrdl neovasType 2 diab with mild nonp rtnop with macular edema, r eyeLattice degeneration of both retinasDrusen of optic disc, bilateralBand keratopathy of both eyes 3 Jamie Velasquez. [address] [facility], [address], [place], [place], [address], [place]. tel:[phone] Specialist : Trinh Campbell NP, [address] , [place], [address]. tel:[phone] cialist: Eloise Joseph MD, [address] [facility], [place], [address]. tel:[phone] er Provider: Trinh Campbell NP, [address], [place], [address]. tel:[phone] erring Provider: Ron Ruiz, [address] [facility] [address], [place], [address] . tel:[phone] [facility], [address] [place] [address] [address], [place], [place], [id number], [phone] SEC Courtland TEE Professional Complete Exam (chief complaint) Type 2 diabetes mellitus without complicationsB and keratopathy of both eyesLattice degeneration of both retinasEarly dry stage nonexudative age-related macular degeneration of right eyeExudative age-related macular degeneration of left eye with active choroidal neovasculariza tion 2 Jamie Velasquez. [address] [facility], [facility] [place], [address], [place]. tel:[phone] Specialist : Trinh Campbell NP, [address] , [place], [address]. tel:[phone] cialist: Eloise Joseph MD, [address] [facility], [place], [address]. tel:[phone] er Provider: Trinh Campbell NP, [address], [place], [address]. tel:[phone] erring Provider: Ron Ruiz, [address] [facility], [place], [address] . tel:[phone] Office/outpa tient Visit, Est [facility], [address] [place] [address] [address], [place], [place], [address], [place] tel:[phone] SEC Courtland TEE Professional 5 month IOP check w/VF (chief complaint) Drusen of optic disc, bilateralType 2 diab with mild nonp rtnop with macular edema, l eyeType 2 diab with mild nonp rtnop without mclr edema, r eyeExudative age-related macular degeneration of left eye with active choroidal neovasculariza tionEarly dry stage nonexudative age-related macular degeneration of right eye 1 Jamie Velasquez. [address], [place], [address], [place]. tel:[phone] Specialist : Trinh Campbell ELECTRONEURODIAGNOSTIC TECHNICIAN, [address], [address]. tel:[phone] cialist: Eloise Joseph MD, [address] [facility], [place], [address]. tel:[phone] cialist: Eloise Joseph MD, [address] [facility], [place], [address]. tel:[phone] erring Provider: Ron Ruiz, [address] [facility] [place], [address] . tel:[phone] [facility], [address], [place], [place], [address], [place] tel:[phone] SEC Salvador SD Professional diabetic eye exam (chief complaint) Presence of intraocular lensType 2 diab with mild nonp rtnop with macular edema, l eyeType 2 diab with mild nonp rtnop without mclr edema, r eyeOther secondary cataract, right eyeBand keratopathy of both eyesPunctate keratitis, right eyeLattice degeneration of both retinasNexdtve age-related mclr degn, bilateral, early dry stageDrusen of optic disc, bilateral Dec-1 4 0 Jamie Velasquez. [address], [place], [address], [place]. tel:[phone] Referring Provider: Ron Ruiz, [address], [place], [address] . tel:[phone] [facility], [address], [place], [place], [address], [place] tel:[phone] SEC Consuelo Eugenio Pitts No Information Dec-0 2 0 Jamie Velasquez. [address], [facility] [place], [place], [address], [place]. tel:[phone] Referring Provider: Jamey Hernandez MD, [address] [facility] [address], [place], [address]. tel:[phone] Family History Family Member Type Diagnosis Age At Onset Problem Family history of Diabetes m tahir Payers Payer name Insurance type Covered alliance party ID Zane lloyd(s) Medicare [facility] [id number] [facility] [place] [id number] Social History Type Description Quantity Date Captured Comments Alcohol Use Details Unknown Caffeine Use Details Unknown Tobacco Use Status No Information Smoking Status No Information Sex Female Chief Complaint And Reason For Visit No Information Reason For Referral Reason For Referral No Information Plan Of Treatment Date Type Action Status Referral Ordered: Andrey Ramirez (related to 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 Evaluate and treat ordered Referral Referred To: Marcos Yu MD [address] [facility] [place], [phone] Ordered: Referrals: Ophthalmology. Marcos Yu MD. Evaluate and treat ordered Patient Education Age-Related Ma cular Degeneration: Care Instructions completed Patient Education Diabetes and P reventing Falls: Care Instructions completed Patient Education Reduced Vision: Care In structions completed Patient Education Age-Related Macular Deg eneration: Car~ completed History Of Present Illness Encounter Date Complaint History Of Prese nt Illness diabetic eye exam The 83 year ol d patient presents for a complete Type II diabetic exam ou. 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 BS was 190 this am. Patient is being treated for DM at the [facility] by PCP Gallo Ndiaye. Patient states her vision is getting worse. Patient has an upcoming apt. with Dr. Joseph. Complete Exam The 82 year old patient presents for evaluation of Complete Exam in the right eye and left eye. Hx of PCIOL OU, NPDR OU, Band K OU, DBH's OS, CME OS, Lattice degen OU, Drusen of Optic Disk OU, AMD OU (Wet OS), and Drusen OD. Patient states VA maybe getting worse. Patient has difficulty with glare OU. Patient is a Type 2 diab, doesn't check BS, unknown a1c, and patient sees a doctor in [place] for her diab, Dr. Campbell. Patient is Insulin independent. Patient is followed by Dr. Joseph. 5 month IOP check w/VF The 80 ye ar old female presents for evaluation of 5 month IOP check w/VF in the right eye and left eye. Hx of PCIOL OU, NPDR OU, CME OS, Lattice Degen OU, Drusen of Optic Disk OU, BK OU, and ARMD OU. Patient states eyes itch and burn all the time. Patient using an OTC gtt for allergies prn OU. Patient is a Type 2 diab x 20 years, on Insulin x 10 years, unknown BS, unknown a1c, and Dr. Trinh Campbell at the [facility] treats her diab. Patient followed by Dr. Joseph. diabetic eye exam The 80 year ol d female presents for a complete Type II diabetic exam ou. BS was 200 this am and states she sees Trinh Campbell from the [facility] in [place]. Patient is pseudo ou and states ever since her glasses do not seem right. Patient states she is having a hard time reading small print and avoids driving at night due to glare and halos. Patient states she is having a hard time watching TV. Functional Status Date Functional Assessmen t No Information Instructions Date Instruction Additional Infor mation Impression/Plan Impression/Plan Impression/Plan Impression/Plan Assessments Type Assessment Date No Information Patient Care Teams Name Effective Dates (start - stop) Status Members No Information
--- OUTSIDE RECORDS SUMMARY | 2025-03-09 12:52 | XMS_ITS | Referral Summary ---
Author Organization [facility] Address [address] [place] [address] Care Team Providers Care Chilling Hood Operator Name Role Phone Karlo Law MD Primary Care Provider [phone] Encounters Date Type Department Care Team Description 01/10/2025 11:00 AM SPECIAL DISTRIBUTION CLERK Office Visit [facility] Medical [facility] Diabetes Endocrine Care at [address] [address] Jessi Mac, BREN Type 2 [...] from PCP was 9%. Labs faxed into [facility] Results Component Value Date HGBA1C 10.2 12/24/2023 Personally reviewed POC blood sugar- not at goal of 80-180 Lab Results Component Value Date POCGLU 229 03/31/2024 Medication- increase Xultophy 34 units daily. Has applied for [employer] patient assistance program but has not heard any response. We faxed patient assistance program forms Monitor blood sugar daily. Encouraged annual eye exam. Personally reviewed CMP eGFR- greater than 60 Kidney function-normal Urine microalbumin/creatinine ratio - slightly elevated, not at goal. Goal is <30 Continue a amlodipine, carvedilol, losartan, hydrochlorothiazide Assessment & Plan (12/24/2023 3:38 PM SPECIAL DISTRIBUTION CLERK): This is a chronic condition which is [...] today in the office. application sent for [employer] patient assistance program. Monitor blood sugar daily [...] Xultophy 30 units daily- application sent for [employer] patient assistance program. Monitor blood sugar daily [...] prescribed. Assessment & Plan (12/24/2023 3:37 PM SPECIAL DISTRIBUTION CLERK): This is a chronic condition which is [...] Comments Blood Pressure 166/90 01/10/2025 11:06 AM SPECIAL DISTRIBUTION CLERK Pulse - - Temperature - - Respiratory Rate - - Oxygen Saturation - - Inhaled Oxygen Concentration - - Weight 68.6 kg (151 lb 3.2 oz) 01/10/2025 11:06 AM SPECIAL DISTRIBUTION CLERK Height 160 cm (5' 3 ) 01/10/2025 11:06 AM SPECIAL DISTRIBUTION CLERK Body Mass Index 26.78 01/10/2025 11:06 AM SPECIAL DISTRIBUTION CLERK Plan of Treatment Not on file Procedures Procedure Name Priority Date/Time Associated Diagnosis Comments POCT HEMOGLOBIN A1C Routine 01/10/2025 1 1:12 AM SPECIAL DISTRIBUTION CLERK Type 2 diabetes mellitus with hyperglycemia, with long-term current use of insulin (HCC) POCT GLUCOSE Routine 01/10/2025 11:11 AM SPECIAL DISTRIBUTION CLERK Type 2 diabetes mellitus with hyperglycemia, with long-term current use of insulin (HCC) COMPREHENSIVE METABOLIC PANEL Routine 07/28/2024 LIPID PANEL Routine 03/24/2024 DIABETIC EYE EXAM Routine 09/07/2023 ALBUMIN CREATININE RATIO, URINE Routine 07/13/2023 from Last 3 Months or Most Recently Relevant to Health Maintenance Results * (ABNORMAL) POCT hemoglobin A1c (01/10/2025 11:12 AM SPECIAL DISTRIBUTION CLERK) [facility] Hemoglobin A1C, POC 9.0 4.0 - 5.6 % Blood 01/10/2025 11:1 2 AM SPECIAL DISTRIBUTION CLERK Jessi aMc NP POINT OF CARE TEST ORDERABLES F inal Result * POCT glucose (01/10/2025 11:11 AM SPECIAL DISTRIBUTION CLERK) [facility] Glucose Blood, POC 236 mg/dL Blood 01/10/2025 11:1 1 AM SPECIAL DISTRIBUTION CLERK Jessi Mac NP POINT OF CARE TEST ORDERABLES F inal Result * (ABNORMAL) Comprehensive metabolic panel (07/28/2024) Pathologist [facility] SCRIBED Sodium 137 135 - 146 mmol/L [...] >60 EXTERNAL LAB SCRIBED eGFR in NonAfrican Turkish 77 0 - >60 EXTERNAL LAB Blood 07/28/2024 Result [facility] Historical Provider LAB BLOOD ORDERABLES Elis l Result Performing Organization Address City/[facility]/ZIP Co de Phone Number EXTERNAL LAB * Lipid panel (03/24/2024) SCRIBED Cholesterol, Total 151 0 - 200 EXTERNAL LAB SCRIBED HDL 54 50 - >50 EXTERNAL LAB SCRIBED LDL 82 0 - 100 EXTERNAL LAB SCRIBED Triglycerides 72 0 - 150 EXTERNAL LAB Blood 03/24/2024 Result [facility] Historical Provider LAB BLOOD ORDERABLES Elis l Result Performing Organization Address [facility]/ZIP Co de Phone Number EXTERNAL LAB * (ABNORMAL) Diabetic Eye Exam (09/07/2023) Result [facility] Historical Provider HEALTH MAINTENANCE Final Result * (ABNORMAL) Albumin Creatinine Ratio, Urine (07/13/2023) SCRIBED Creatinine, Urine 290.19(A) 40 - 278 EXTERNAL LAB SCRIBED Microalbumin 144.3(A) 1.0 - 30.0 EXTERNAL LAB SCRIBED Microalb/Creat Ratio 49.7 EXTERNAL LAB Urine 07/13/2023 Result [facility] Historical Provider LAB URINE ORDERABLES Elis l Result EXTERNAL LAB from Last 3 Months or Most Recently Relevant to Health Maintenance Insurance MEDICARE [facility] MEDICARE [facility] Care Teams Chilling Hood Operator Relationship Specialty Start Date End Date Karlo Law MD PCP - General Internal Medicine 08/13/23
--- OUTSIDE RECORDS SUMMARY | 2025-03-09 12:52 | XMS_ITS | Clinical Summary ---
[facility] Address [address] [place] [address] Care Team Providers Care Cook Chili Name Role Phone Karlo Law MD Primary Care Provider [phone] Allergies No known active allergies Medications Synthroid [...] from PCP was 9%. Labs faxed into [facility] Results Component Value Date HGBA1C 10.2 12/24/2023 Personally reviewed POC blood sugar- not at goal of 80-180 Lab Results Component Value Date POCGLU 229 03/31/2024 Medication- increase Xultophy 34 units daily. Has applied for [employer] patient assistance program but has not heard any response. We faxed patient assistance program forms Monitor blood sugar daily. Encouraged annual eye exam. Personally reviewed CMP eGFR- greater than 60 Kidney function-normal Urine microalbumin/creatinine ratio - slightly elevated, not at goal. Goal is <30 Continue a amlodipine, carvedilol, losartan, hydrochlorothiazide Assessment & Plan (12/24/2023 3:38 PM SOFTWARE CONTROLS ENGINEER): This is a chronic condition which is [...] today in the office. application sent for [employer] patient assistance program. Monitor blood sugar daily [...] Xultophy 30 units daily- application sent for [employer] patient assistance program. Monitor blood sugar daily [...] prescribed. Assessment & Plan (12/24/2023 3:37 PM SOFTWARE CONTROLS ENGINEER): This is a chronic condition which is [...] Department Care Team Description 01/10/2025 11:00 AM SOFTWARE CONTROLS ENGINEER Office Visit [facility] Medical Group Diabetes Endocrine Care at [address] [address] Jessi Mac, BREN Type 2 [...] Comments Blood Pressure 166/90 01/10/2025 11:06 AM SOFTWARE CONTROLS ENGINEER Pulse - - Temperature - - Respiratory Rate - - Oxygen Saturation - - Inhaled Oxygen Concentration - - Weight 68.6 kg (151 lb 3.2 oz) 01/10/2025 11:06 AM SOFTWARE CONTROLS ENGINEER Height 160 cm (5' 3 ) 01/10/2025 11:06 AM SOFTWARE CONTROLS ENGINEER Body Mass Index 26.78 01/10/2025 11:06 AM SOFTWARE CONTROLS ENGINEER Plan of Treatment Health Maintenance Due Date [...] HEMOGLOBIN A1C Routine 01/10/2025 1 1:12 AM SOFTWARE CONTROLS ENGINEER Type 2 diabetes mellitus with hyperglycemia, with long-term current use of insulin (HCC) POCT GLUCOSE Routine 01/10/2025 11:11 AM SOFTWARE CONTROLS ENGINEER Type 2 diabetes mellitus with hyperglycemia, with long-term current use of insulin (HCC) COMPREHENSIVE METABOLIC PANEL Routine 07/28/2024 LIPID PANEL Routine 03/24/2024 DIABETIC EYE EXAM Routine 09/07/2023 ALBUMIN CREATININE RATIO, URINE Routine 07/13/2023 from Last 3 Months or Most Recently Relevant to Health Maintenance Results * (ABNORMAL) POCT hemoglobin A1c (01/10/2025 11:12 AM SOFTWARE CONTROLS ENGINEER) Hemoglobin A1C, POC 9.0 4.0 - 5.6 % Blood 01/10/2025 11:1 2 AM SOFTWARE CONTROLS ENGINEER Jessi Mac NP POINT OF CARE TEST ORDERABLES F inal Result * POCT glucose (01/10/2025 11:11 AM SOFTWARE CONTROLS ENGINEER) Glucose Blood, POC 236 mg/dL Blood 01/10/2025 11:1 1 AM SOFTWARE CONTROLS ENGINEER Jessi Mac NP POINT OF CARE TEST [...] >60 EXTERNAL LAB SCRIBED eGFR in NonAfrican Slovak 77 0 - >60 EXTERNAL LAB Blood [...] ORDERABLES Elis l Result Performing Organization Address City/[facility]/ZIP Co de Phone Number EXTERNAL LAB from Last 3 Months or Most Recently Relevant to Health Maintenance Insurance [facility]ICARE [facility] MEDICARE [facility] Care Teams Cook Chili Relationship Specialty Start Date End Date Karlo Law MD PCP - General Internal Medicine 08/13/23
== END 2025-03-09 12:33 | disposition home or self-care (01) ==
PROVIDERS: PCP Internal Medicine; Visit Provider Internal Medicine
DX: R94.31 Abnormal electrocardiogram [ECG] [EKG] (principal); I34.0 Nonrheumatic mitral (valve) insufficiency
CPT/HCPCS: 93306